=== PATIENT | male | born 1970 | race Caucasian/White ===

== ENCOUNTER 2019-07-08 02:21 | Inpatient (IN) | payer OTHER ==
[2019-07-08 02:51] LABS: Mean Corpuscular HGB CONC 34.6 g/dL (32.0-36.0); Mean Corpuscular Volume 95.3 fL (78.0-98.0); Mean Platelet Volume 7.9 fL (7.4-10.4); Platelet Count 171 thou/uL (130-400); Red Blood Cell (RBC) Count 4.24 mill/uL (4.70-6.10); White Blood Cell (WBC) Count 17.9 thou/uL (4.8-10.8)
[2019-07-08 02:55] LABS: INR-International Normal Ratio 3.1; PTT 67.7 SEC (22.9-36.1)
[2019-07-08 03:08] LABS: Band 17 % (5-11); Lymphocytes 4 % (21-51); MDiff Complete? YES; Monocytes 6 % (0-10); Neutrophil 73 % (42-75)
[2019-07-08 03:10] LABS: ALT (SGPT) 20 U/L (8-55); AST (SGOT) 32 U/L (5-34); Albumin 3.4 g/dL (3.5-5.0); Alkaline Phosphatase 71 U/L (40-150); Anion Gap 18 mmol/L (10-20); BUN (Urea Nitrogen) 34 mg/dL (8.9-20.6); Bilirubin, Total 1.1 mg/dL (0.2-1.2); Calc. Creatinine Clearance 0 mL/min (70-130); Carbon Dioxide 24 mmol/L (22-29); Chloride 98 mmol/L (98-107); Estimated GFR-MDRD 54; Globulin 3.9 g/dL (2.4-3.5); Glucose 171 mg/dL (70-105); Potassium 3.6 mmol/L (3.5-5.1); Protein, Total 7.3 g/dL (6.0-8.3); Sodium 136 mmol/L (136-145)
[2019-07-08] MEDS ORDERED: Clindamycin/D5W 600 mg/50 ml Premix Bag ONE (03:13)
[2019-07-08] MEDS ORDERED: Fentanyl 100 MCG/2 ML VIAL ONE (03:13)
[2019-07-08] MEDS ORDERED: Norepinephrine 8 MG in Dextrose 5% in Water 242 ML IVPB PRN (03:29)
[2019-07-08] MEDS ORDERED: Acetaminophen 325 MG TAB PO PRN (04:57)
[2019-07-08] MEDS ORDERED: Ondansetron ODT 4 MG TAB PO PRN (04:57)
[2019-07-08] MEDS ORDERED: Dextrose 50% Abboject 50 ML SYRINGE SLOW IVP PRN (05:06)
[2019-07-08] MEDS ORDERED: Dextrose 5% in Water 1,000 ML IV PRN (05:06)
[2019-07-08] MEDS ORDERED: HumaLOG 300 UNITS/3 ML VIAL SC PRN (05:06)
--- NOTE | 2019-07-08 06:12 | HP ---
CHIEF COMPLAINT: Worsening left leg pain. HISTORY OF PRESENT ILLNESS: Mr. Cruz is a 48-year-old male with multiple medical problems including morbid obesity, atrial fibrillation, anticoagulated on warfarin, congestive heart failure, peripheral vascular disease, chronic back pain, among others, presents to the emergency room with worsening left leg pain/cellulitis. The patient reports initially presenting to the ED with 3 days of worsening leg pain, denies shortness of breath. He has been having fever and chills for the last 2 days. Also, he developed diarrhea for the last 2 days. Workup in the emergency room, the patient was found to have a WBC count of 17.9. Blood pressure initially was low. A bedside ultrasound of the leg was done. CT of the lower extremity was not able to be done because of the patient's size and weight. Lactic acid is 3.5. Septic workup done in the emergency room. The patient was started on IV antibiotics. PAST MEDICAL HISTORY: 1. Diabetes. 2. Atrial fibrillation, anticoagulated on warfarin. 3. Congestive heart failure. 4. Peripheral vascular disease. 5. Chronic back pain. PAST SURGICAL HISTORY: Unknown cardiac procedure. SOCIAL HISTORY: He currently uses drugs, abuses marijuana. No cigarette smoking. He drinks alcohol socially. FAMILY HISTORY: Reviewed and noncontributory. ALLERGIES: NO KNOWN ALLERGIES. HOME MEDICATIONS: Please see home medication reconciliation form for updated medications. REVIEW OF SYSTEMS: Review of 14 systems negative except what is mentioned in history of present illness. PHYSICAL EXAMINATION: GENERAL: The patient is awake, alert, morbidly obese, not in acute distress. VITAL SIGNS: Blood pressure 112/86, pulse is 107, respiratory rate is 19, temperature 98.4. HEAD: Normocephalic, atraumatic. NECK: Supple. No JVD. CHEST: Fair bilateral air entry. ABDOMEN: Obese, soft. Bowel sounds present. NEUROLOGIC: Awake, alert, oriented x3. No focal deficits. PSYCHIATRIC: Normal mood. EXTREMITIES: Lower extremity shows swollen, erythematous, weeping skin, more in left lower extremity extending up to the left thigh. LABORATORY DATA: BUN is 34, creatinine 1.4, glucose 171. WBC count is 17.9, hemoglobin is 14, platelets 171. Lactic acid 3.5, INR is 3.1. ASSESSMENT AND PLAN: A 48-year-old male with multiple medical problems including morbid obesity, atrial fibrillation, congestive heart failure, peripheral vascular disease, diabetes mellitus, among others, presenting with worsening left leg pain, swelling and cellulitis. 1. Sepsis secondary to cellulitis of the left lower extremity. 2. Cellulitis of the left lower extremity. 3. Morbid obesity. 4. Diabetes mellitus. 5. Peripheral vascular disease. 6. Atrial fibrillation. PLAN: 1. Admit. 2. Septic workup including blood cultures. 3. Broad-spectrum antibiotics. 4. Wound care. 5. Cautious IV fluids given his cardiac history. 6. Reassess in a.m., may need a surgical consultation if worsening. 7. Monitor and control blood glucose. 8. Reconcile home medications. 9. DVT prophylaxis. Continue home anticoagulant. 10. Expected length of stay 3 midnights or more. Job ID: [id number]
[2019-07-08 06:43] LABS: Lactic Acid 1.9 mmol/L (0.5-2.2)
[2019-07-08] MEDS: Sodium Chloride 0.9% 1,000 ML IV SCH (06:51)
[2019-07-08] MEDS: metroNIDAZOLE 500 MG in Premix Bag 1 BAG IVPB SCH ×3 (06:52→17:51)
--- NOTE | 2019-07-08 07:42 | CT ---
CT OF THE LEFT LOWER EXTREMITY WITH IV CONTRAST: INDICATION: A 48-year-old male with a history of sepsis in atrial fibrillation and left lower extremity celluliti s. Worsening left leg pain; currently on anticoagulation with Coumadin but denies any shortness of b reath. The patient does have fever, chills, and diarrhea with progressive erythema. The patient is experiencing predominantly the pain in the left thigh. COMPARISON: None. FINDINGS: There is a marked grouping of lymphadenopathy within the left inguinal region with the largest lymph node seen on image 64 measuring 2.6 c in its greatest short axis. There is edema and inflammatory re ticulation involving the fat of the left inguinal region, skin and subcutaneous fat of the medial lef t thigh, posterior left knee and circumferentially of the foreleg, ankle, as well as the dorsal foot. No large drainable fluid collection is evident to suggest the presence of an abscess. There is no soft tissue gas present. No large interfascial fluid collections are demonstrated. No fluid collect ions are evident within the muscular compartments. There is a 3 cm lesion that contains stippled radha cifications suspicious for a low-grade chondroid lesion within the distal central femoral metaphyseal region. No acute osseous abnormality is demonstrated. IMPRESSION: 1. Marked cellulitis of the left lower extremity without evidence of a drainable fluid collection. 2. Suspected reactive lymphadenopathy of the left inguinal region. 3. Low-grade chondroid lesion of the distal femur. POS: ELENA
[2019-07-08] MEDS ORDERED: INSULIN REGULAR HUMAN 1 UNIT SQ SCH (08:15)
--- NOTE | 2019-07-08 08:41 | ULT ---
PRELIMINARY REPORT/[facility]/EMERGENCY AFTER HOURS PROCEDURE: EXAM: US Duplex Left Lower Extremity Veins, Limited EXAM DATE/TIME: 07/08/2019 3:39 AM CLINICAL HISTORY: 48 years old, male; Other: Lle pain, redness, swelling TECHNIQUE: Imaging protocol: Real-time Duplex ultrasound of the Left Lower Extremity with 2-D oden scale, color Doppler flow and spectral waveform analysis with image documentation. Limited exam focused on the lef t lower extremity veins. COMPARISON: No relevant prior studies available. FINDINGS: Left deep veins: The common femoral, femoral, proximal profunda femoral and popliteal veins are paten t without thrombus. Normal Doppler waveforms. Normal compressibility and/or augmentation response. Left superficial veins: Saphenofemoral junction is patent without thrombus. Soft tissues: Mild pulmonary edema. IMPRESSION: No evidence of deep vein thrombosis. Thank you for allowing us to participate in the care of your patient. Dictated and Authenticated by: Nikki Andrade MD 07/08/2019 4:19 AM Central Time ([place] & [place]) FINAL REPORT ULTRASOUND WITH DOPPLER DUPLEX VENOUS LOWER EXTREMITY LEFT: INDICATION: Edema, erythema. TECHNIQUE: Color flow Doppler, spectral waveform analysis of pulsed Doppler, and oden-scale imaging with rosalina randi and augmentation, were used to evaluate the left common femoral, femoral, popliteal, posterior t ibial, and superficial femoral, veins; and the proximal portions of the profunda femoral and greater saphenous, veins. FINDINGS: Within the imaged aspects of the deep vein system of the left lower extremity, there is no evidence o f deep venous thrombosis, with appropriate compressibility and flow. However, portions of the venous system are not visualized, below level of knee, notably at the posterior tibial vein. IMPRESSION: No deep venous thrombosis identified within the imaged left lower extremity, within limitations. I agree with the above provided preliminary interpretation from [facility]. POS: TPC
[2019-07-08] MEDS ORDERED: Buprenorphine HCl 2 MG SL TAB SL SCH (09:00)
[2019-07-08] MEDS ORDERED: INSULIN REGULAR HUMAN 100 UNIT SQ SCH (09:00)
[2019-07-08] MEDS ORDERED: Vancomycin HCl 1 GM in Sodium Chloride 0.9% 250 ML 250 ML IVPB SCH (09:00)
[2019-07-08] MEDS: Gemfibrozil 600 MG TAB PO SCH (09:55)
[2019-07-08] MEDS: Allopurinol 100 MG TAB PO SCH (09:55)
[2019-07-08] MEDS: Spironolactone 25 MG TAB PO SCH (09:56)
[2019-07-08] MEDS: Famotidine/PF 20 mg/2ml Vial SLOW IVP SCH ×2 (09:57→20:23)
[2019-07-08] MEDS: Cefepime 1 GM in Sodium Chloride 0.9% 100 ML IVPB SCH ×2 (09:57→20:17)
[2019-07-08] MEDS: Furosemide 40 MG TAB PO SCH ×2 (09:57→20:23)
[2019-07-08] MEDS: Morphine 2 MG/ML SYRINGE SLOW IVP PRN ×2 (10:07→20:27)
--- NOTE | 2019-07-08 10:18 | RAD ---
PORTABLE SEMIUPRIGHT FRONTAL CHEST RADIOGRAPH: 07/08/2019 HISTORY: Cellulitis. Sepsis. Atrial fibrillation with rapid ventricular rate. COMPARISON: 07/07/2019 FINDINGS: A right-sided vascular catheter is present. The distal tip is in the region of the cavoatrial juncti on, not optimally visualized secondary to body habitus and subtle motion. The cardiac silhouette pawan ears enlarged, which may be on the basis of cardiac enlargement and/or magnification. No focal conso lidation or alveolar edema. IMPRESSION: Portable chest radiograph as detailed above. POS: OFF
--- NOTE | 2019-07-08 12:04 | PDOC.EVN ---
Event Note - Event Note Event Note: Seen and examined. Changing to home insulin which he has with him. LE cellulitis improved per patient. LE swelling is chronic, patient states he will "drink a couple gallons of water a day". Patient also tells me he thinks "his Lasix is no longer working". Briefly educated on volume overload and cautioned him against drinking excess fluids. Responding to ABX. Follow culture data.
[2019-07-08] MEDS ORDERED: ISOVUE-370 76%-LOCM 1 ML ONE (13:10)
--- NOTE | 2019-07-08 16:54 | CON ---
DATE OF CONSULTATION: HISTORY OF PRESENT ILLNESS: Nesha Cruz is a 48-year-old morbidly obese gentleman, who normally seeks care in [facility] with multiple [facility]. He has multiple problems, morbidly obese at 198 kg. He presented to the hospital via [place], [place] with marked lower extremity swelling, drainage of fluid from the leg. Apparently, reported some fever and chills. He has noticed extensive erythema over the left thigh and leg with worsening blisters, which has been draining. He can barely walk 50 feet on the good day without getting short of breath. He says he was recently diagnosed with sleep apnea and has been placed on a CPAP machine. He is yet to use it. PAST MEDICAL HISTORY: Atrial fibrillation, congestive heart failure, morbid obesity, sleep apnea, chronic stasis, diabetes, and hypertension. PAST SURGICAL HISTORY: Chronic back pain. HOME MEDICATIONS: Include; 1. Insulin. 2. Ascorbic acid. 3. Metformin 1 tablet twice a day. 4. Allopurinol. 5. Gabapentin. 6. Lasix 40 b.i.d. 7. Lopid 650. 8. Spironolactone 25. 9. Coumadin 5. 10. Metoprolol XL 50. ALLERGIES: NONE. SOCIAL HISTORY: Uses marijuana apparently. Denies any tobacco abuse. Denies any alcohol abuse. Disabled. REVIEW OF SYSTEMS: Otherwise, 10-point negative. PHYSICAL EXAMINATION: GENERAL: Morbidly obese, in no distress. VITAL SIGNS: His saturations are 95% on supplemental oxygen, temperature 97, and blood pressure 110/67. CHEST: No wheezing or crackles. CARDIAC: Normal S1 and S2. No gallops. ABDOMEN: No masses. EXTREMITIES: Extensive 3+ edema right leg, 4+ on the left leg with large blisters draining. LABORATORY DATA: White count 17,000, H and H of 14 and 40, and platelet count is normal. INR is 3.1. Creatinine 1.4. IMAGING DATA: Chest x-ray is normal. No evidence of DVT was seen. IMPRESSION: 1. Extensive lower extremity edema, stasis, cellulitis. 2. Chronic exacerbation of congestive heart failure. PLAN: He was started on antibiotics, broad spectrum. Adjustment for his renal failure, Maxipime, Flagyl, and vancomycin. He is already on his Coumadin, already on his diuretics. I will continue all medication. I will consult Cardiology. Wound care. Consultation note, 70 minutes, 50% direct patient care. Job ID: [id number]
[2019-07-08] MEDS ORDERED: Warfarin Sodium 7.5 MG TAB PO SCH (17:00)
[2019-07-08] MEDS: Gabapentin 300 MG CAP PO SCH (20:23)
[2019-07-09] MEDS: metroNIDAZOLE 500 MG in Premix Bag 1 BAG IVPB SCH ×4 (01:21→17:07)
[2019-07-09] MEDS: Sodium Chloride 0.9% 1,000 ML IV SCH (01:30)
[2019-07-09 06:57] LABS: Hemoglobin 11.8 g/dL (14.0-18.0); Mean Corpuscular HGB CONC 33.5 g/dL (32.0-36.0); Mean Corpuscular Hemoglobin 32.6 pg (27.0-31.0); Mean Corpuscular Volume 97.4 fL (78.0-98.0); Mean Platelet Volume 8.2 fL (7.4-10.4); Platelet Count 161 thou/uL (130-400); RBC Distribution Width 13.1 % (11.5-14.5); Red Blood Cell (RBC) Count 3.61 mill/uL (4.70-6.10); White Blood Cell (WBC) Count 12.8 thou/uL (4.8-10.8)
[2019-07-09 07:01] LABS: Prothrombin Time 43.5 SEC (12.0-14.7)
[2019-07-09 07:02] LABS: INR-International Normal Ratio 4.7
[2019-07-09 07:08] LABS: ALT (SGPT) 17 U/L (8-55); AST (SGOT) 33 U/L (5-34); Alkaline Phosphatase 84 U/L (40-150); Anion Gap 11 mmol/L (10-20); BUN (Urea Nitrogen) 31 mg/dL (8.9-20.6); Bilirubin, Total 0.6 mg/dL (0.2-1.2); Calc. Creatinine Clearance 211 mL/min (70-130); Calcium 8.8 mg/dL (7.8-10.44); Carbon Dioxide 30 mmol/L (22-29); Chloride 100 mmol/L (98-107); Estimated GFR-MDRD 66; Globulin 3.7 g/dL (2.4-3.5); Glucose 159 mg/dL (70-105); Potassium 3.4 mmol/L (3.5-5.1); Protein, Total 6.7 g/dL (6.0-8.3); Sodium 138 mmol/L (136-145)
[2019-07-09 07:29] LABS: Band 29 % (5-11); Lymphocytes 7 % (21-51); MDiff Complete? YES; Metamyelocyte 1 % (0-0); Monocytes 4 % (0-10); Myelocyte 1 % (0-0); Neutrophil 58 % (42-75); RBC Morphology Normal
--- NOTE | 2019-07-09 09:01 | PRG ---
DATE OF SERVICE: 07/09/2019 SUBJECTIVE: He is a 48-year-old morbidly obese gentleman, who said he became hypoglycemic last night with his blood sugars unfortunately running low. This morning, his blood sugar is 66, creatinine is 1.8. White count 12,000, H and H 12 and 35. Leg still got weeping drainage from his cellulitis. So far all cultures are negative. He appears to be in no distress. OBJECTIVE: VITAL SIGNS: Temperature 98, blood pressure 110/73, saturations are 90% on room air. CHEST: No wheezing or crackles. CARDIAC: Normal S1 and S2. ASSESSMENT AND PLAN: Diabetes, cellulitis, morbid obesity, sleep apnea, congestive heart failure. Once cultures are back, I will start to deescalate antibiotics. He can probably be transferred out of the MICU. Aggressive PT supportive care. Job ID: [id number]
[2019-07-09] MEDS: Cefepime 1 GM in Sodium Chloride 0.9% 100 ML IVPB SCH ×2 (09:56→19:58)
[2019-07-09] MEDS: Gabapentin 300 MG CAP PO SCH ×2 (09:57→20:04)
[2019-07-09] MEDS: Furosemide 40 MG TAB PO SCH ×2 (09:57→20:04)
[2019-07-09] MEDS: Spironolactone 25 MG TAB PO SCH (09:57)
[2019-07-09] MEDS: Fenofibrate Nanocrystallized 145 MG TAB PO SCH (09:57)
[2019-07-09] MEDS: Famotidine/PF 20 mg/2ml Vial SLOW IVP SCH (09:57)
[2019-07-09] MEDS: Allopurinol 100 MG TAB PO SCH (09:57)
[2019-07-09] MEDS: Gemfibrozil 600 MG TAB PO SCH (09:57)
[2019-07-09] MEDS: Ascorbic Acid 500 mg Chewable Tablet PO SCH (09:57)
[2019-07-09] MEDS: HYDROcodone/Acetaminophen 7.5/325 mg Tablet PO PRN (11:03)
[2019-07-09] MEDS ORDERED: Warfarin Sodium 3.75 MG HALF.TAB PO SCH (17:00)
--- NOTE | 2019-07-09 18:39 | PDOC.HOSPP ---
- Subjective Encounter Date: 07/09/19 Encounter Time: 17:00 Subjective: Symptomatic hypoglycemia overnight. Discussed home insulin regimen: Humulin approx 200 units per 24 hours. Does not feel redness or induration have changed much overlying left leg. Increased blistering present. No further fever/chills as he experienced at home before presentation. - Objective Vital Signs & Weight: Vital Signs (12 hours) Temp Pulse Pulse BP BP Pulse Ox Pulse Ox 07/09/19 15:00 98.7 F 07/09/19 14:25 97 99 131/84 126/88 95 07/09/19 11:00 98.1 F 07/09/19 08:39 97.8 F 07/09/19 08:00 96 07/09/19 07:00 98.8 F Pulse Ox 07/09/19 15:00 07/09/19 14:25 97 07/09/19 11:00 07/09/19 08:39 07/09/19 08:00 07/09/19 07:00 Weight Admit Weight 434 lb 12.025 oz Weight 433 lb 14.4 oz Most Recent Monitor Data Heart Rate from ECG 92 NIBP 136/99 NIBP BP-Mean 111 Respiration from ECG 23 SpO2 97 I&O: 07/08/19 07/09/19 07/10/19 06:59 06:59 06:59 Intake Total 3000 Output Total 200 2950 800 Balance -200 50 -800 Result Diagrams: 07/09/19 06:00 07/09/19 06:00 Additional Labs: Accuchecks 07/09/19 07/09/19 07/09/19 16:48 11:56 05:26 POC Glucose 183 H 255 H 138 H 07/09/19 07/09/19 07/09/19 05:00 03:25 02:46 POC Glucose 119 H 92 75 07/09/19 07/08/19 02:21 20:19 POC Glucose 56 L* 128 H Hospitalist ROS - Medication Medications: Active Medications Generic Name Dose Route Start Last Admin Trade Name Freq PRN Reason Stop Dose Admin Hydrocodone Bitart/Acetaminophen 1 tab 07/08/19 04:57 07/09/19 11:03 Caney 7.5/325 PO 1 tab Q4H PRN Administration Moderate Pain (4-6) Allopurinol 100 mg 07/08/19 09:00 07/09/19 09:57 Zyloprim PO 100 mg DAILY JOURDAN Administration Ascorbic Acid 500 mg 07/09/19 09:00 07/09/19 09:57 Vitamin C PO 500 mg DAILY JOURDAN Administration Famotidine 20 mg 07/08/19 09:00 07/09/19 09:57 Pepcid SLOW IVP 20 mg Q12HR JOURDAN Administration Fenofibrate 145 mg 07/09/19 09:00 07/09/19 09:57 Tricor PO 145 mg DAILY JOURDAN Administration Furosemide 40 mg 07/08/19 09:00 07/09/19 09:57 Lasix PO 40 mg BID JOURDAN Administration Gabapentin 1,800 mg 07/08/19 21:00 07/09/19 09:57 Neurontin PO 1,800 mg BID JOURDAN Administration Gemfibrozil 600 mg 07/08/19 09:00 07/09/19 09:57 Lopid PO 600 mg DAILY JOURDAN Administration Sodium Chloride 1,000 mls @ 50 mls/hr 07/08/19 05:00 07/09/19 01:30 Normal Saline 0.9% IV 1,000 mls .Q20H JOURDAN Administration Cefepime HCl 1 gm/ Sodium 100 mls @ 200 mls/hr 07/08/19 08:00 07/09/19 09:56 Chloride IVPB 100 mls 0800,2000 JOURDAN Administration Metronidazole 500 mg/ Device 100 mls @ 100 mls/hr 07/08/19 06:00 07/09/19 17: 07 IVPB 100 mls Q6HR JOURDAN Administration Vancomycin HCl 2 gm/ Sodium 500 mls @ 250 mls/hr 07/08/19 09:00 07/09/19 11: 00 Chloride IVPB 500 mls 0900,2100 JOURDAN Administration Metoprolol Succinate 50 mg 07/08/19 09:00 07/09/19 09:57 Toprol Xl PO 50 mg BID JOURDAN Administration Morphine Sulfate 2 mg 07/08/19 09:34 07/08/19 20:27 Morphine SLOW IVP 2 mg Q4H PRN Administration Moderate to Severe Pain (6-10) Spironolactone 25 mg 07/08/19 09:00 07/09/19 09:57 Aldactone PO 25 mg DAILY JOURDAN Administration - Exam General - other findings: Sitting up in bed, talkative; obese Eye: PERRL ENT: no oropharyngeal lesions, moist mucosa Neck: no JVD Heart: irregular Respiratory: CTAB Gastrointestinal: soft Gastrointestinal - other findings: obese Extremities - other findings: Profound lymphedema with overlying cellulitis/ blisters Left upper leg Skin - other findings: as above; warm/indurated Neurological: no weakness Musculoskeletal: normal strength Psychiatric: A&O x 3 Hosp A/P (1) Sepsis Code(s): A41.9 - SEPSIS, UNSPECIFIED ORGANISM Status: Acute (2) Cellulitis Code(s): L03.90 - CELLULITIS, UNSPECIFIED Status: Acute (3) Lymphedema Code(s): I89.0 - LYMPHEDEMA, NOT ELSEWHERE CLASSIFIED Status: Acute (4) Atrial fibrillation, chronic Code(s): I48.2 - CHRONIC ATRIAL FIBRILLATION Status: Acute (5) Morbid obesity Code(s): E66.01 - MORBID (SEVERE) OBESITY DUE TO EXCESS CALORIES Status: Acute (6) Type 2 diabetes mellitus Status: Acute (7) Peripheral vascular disease Code(s): I73.9 - PERIPHERAL VASCULAR DISEASE, UNSPECIFIED Status: Acute - Plan ID - Unfortunately I do not see blood culture results, hopefully these were drawn in [place] before transfer. Currently on empiric IV abx (Vanc/Cefepime/ Flagyl.) Transition to orals once clear improvement established. Follow WBC, appears to be responding to therapy. Continue wound care, appreciate consult Cards - continue home metoprolol (chronic afib, rate controlled.) Hold coumadin tonight, INR noted, 4.7. Coumadin 2mg nightly ordered for 07/10. No echo noted to review documented history of CHF, will order. Continue home aldactone, lasix. Stop IV fluids. Walking program Endo - Decrease insulin at night due to hypoglycemia Transfer to [facility], ordered entered
[2019-07-09] MEDS ORDERED: Insulin Regular 300 UNITS/3 ML VIAL SC SCH (21:00)
[2019-07-10] MEDS: metroNIDAZOLE 500 MG in Premix Bag 1 BAG IVPB SCH ×4 (01:42→17:00)
[2019-07-10 06:47] LABS: Hemoglobin 12.5 g/dL (14.0-18.0); Mean Corpuscular HGB CONC 32.9 g/dL (32.0-36.0); Mean Corpuscular Hemoglobin 32.1 pg (27.0-31.0); Mean Corpuscular Volume 97.4 fL (78.0-98.0); Mean Platelet Volume 7.9 fL (7.4-10.4); Platelet Count 205 thou/uL (130-400); White Blood Cell (WBC) Count 12.4 thou/uL (4.8-10.8)
[2019-07-10 06:50] LABS: INR-International Normal Ratio 3.9; Prothrombin Time 38.1 SEC (12.0-14.7)
[2019-07-10 07:06] LABS: Anion Gap 14 mmol/L (10-20); BUN (Urea Nitrogen) 23 mg/dL (8.9-20.6); Calc. Creatinine Clearance 232 mL/min (70-130); Calcium 8.8 mg/dL (7.8-10.44); Carbon Dioxide 28 mmol/L (22-29); Chloride 102 mmol/L (98-107); Estimated GFR-MDRD 73; Glucose 138 mg/dL (70-105); Potassium 3.5 mmol/L (3.5-5.1); Sodium 140 mmol/L (136-145)
[2019-07-10 08:23] LABS: Band 27 % (5-11); Eosinophils 4 % (0-10); Lymphocytes 13 % (21-51); MDiff Complete? YES; Monocytes 4 % (0-10); Neutrophil 52 % (42-75); RBC Morphology Normal
[2019-07-10] MEDS ORDERED: Insulin Regular 300 UNITS/3 ML VIAL SC SCH (09:00)
--- NOTE | 2019-07-10 09:14 | PRG ---
DATE OF SERVICE: 07/10/2019 SUBJECTIVE: The patient is seen and examined at the bedside. He was hypoglycemic this morning. He had some shakes and got sweaty, but this is corrected and he feels better. He still has pain in his left thigh, where the cellulitis is. He rates it at around 7. OBJECTIVE: VITAL SIGNS: Blood pressure is 150/95, pulse is 86, respiratory rate is 7, O2 saturation is 96% on room air. GENERAL: His BMI 64. He is morbidly obese. He is 433 pounds. HEENT: His eyes are PERRLA. Sclerae are nonicteric. Oral mucosa is moist. NECK: Supple, obese. LUNGS: Clear. HEART: S1, S2. Irregularly irregular. No S3. No S4. ABDOMEN: Very obese. Bowel sounds present. EXTREMITIES: Left thigh showed significant cellulitis with some blister formation. No pus visible. NEUROLOGICAL EXAMINATION: He moves his all 4 extremities. There is no any motor or sensory deficits. LABORATORY DATA: Labs showed white count of 12.4, hemoglobin 12.5, hematocrit 38.0, platelet count 205,000. Normal electrolytes. BUN of 23, creatinine 1.07. Glucose from 86 to 183. INR is 3.9, PT 38.1. Microbiology, none. IMPRESSION: 1. Sepsis. 2. Left thigh cellulitis. 3. Lymphedema. 4. Chronic atrial fibrillation, rate controlled on anticoagulation. 5. Morbid obesity. 6. Type 2 diabetes mellitus. 7. Hypoglycemia. 8. Peripheral vascular disease. 9. History of congestive heart failure per the patient's information. DISCUSSION: The patient is going to use his own insulin, which is Humulin R 50 units before each meal, which is going to give him about 150 units daily since he was hypoglycemic again this morning. We will continue his current regimen with vancomycin, cefepime, and Flagyl. We will check on his blood cultures, which were drawn in [place] before the transfer. We will get ID consult with Dr. García. This is most likely a strep B cellulitis with blisters formation. His INR is 3.9. We will hold his Coumadin and check his INR tomorrow morning. We will continue his diuretics and Accu-Cheks. Job ID: [id number]
[2019-07-10] MEDS: Cefepime 1 GM in Sodium Chloride 0.9% 100 ML IVPB SCH ×2 (09:26→20:16)
[2019-07-10] MEDS: Allopurinol 100 MG TAB PO SCH (09:27)
[2019-07-10] MEDS: Ascorbic Acid 500 mg Chewable Tablet PO SCH (09:27)
[2019-07-10] MEDS: Gabapentin 300 MG CAP PO SCH ×2 (09:27→20:15)
[2019-07-10] MEDS: Spironolactone 25 MG TAB PO SCH (09:28)
[2019-07-10] MEDS: Fenofibrate Nanocrystallized 145 MG TAB PO SCH (09:28)
[2019-07-10] MEDS: Gemfibrozil 600 MG TAB PO SCH (09:28)
[2019-07-10] MEDS: Furosemide 40 MG TAB PO SCH ×2 (09:28→20:16)
--- NOTE | 2019-07-10 09:36 | PRG ---
DATE OF SERVICE: 07/10/2019 SUBJECTIVE: This morning, awake, alert, and responsive. No pain. No shortness of breath. OBJECTIVE: VITAL SIGNS: Temperature 97, blood pressure 150/95, respiratory rate 18, and pulse 80. CHEST: No wheezing or crackles. CARDIAC: Normal S1 and S2. No gallops. ABDOMEN: No masses. LABORATORY DATA: His INR is 3.9. His blood sugar continues to decrease from time to time. His insulin dose has been adjusted. IMPRESSION: 1. Cellulitis. 2. Morbid obesity. 3. Diabetes. 4. Sleep apnea. 5. Severe deconditioning. PLAN: Once again, his cultures are negative. I see no reason to continue multiple antibiotics. We will follow. Job ID: [id number]
[2019-07-10] MEDS ORDERED: Warfarin Sodium 2 MG TAB PO SCH (17:00)
[2019-07-10] MEDS: HYDROcodone/Acetaminophen 7.5/325 mg Tablet PO PRN (20:12)
[2019-07-10 20:54] LABS: Vancomycin, Trough 19.4 ug/mL
--- NOTE | 2019-07-10 23:25 | CON ---
DATE OF CONSULTATION: 07/10/2019 REASON FOR CONSULTATION: Cellulitis, left lower extremity. HISTORY OF PRESENT ILLNESS: A 48-year-old patient, history of type 2 diabetes; cardiomyopathy; obesity; chronic venous insufficiency, lower extremities; and new onset of inflammatory process in the left leg ascending through the medial left thigh few days before admission, a fairly sudden onset. This has been associated with fever, chills, some diarrhea, and some sore throat. Initial white cell count 17.9. He has been started on broad-spectrum antimicrobial coverage. The exam was remarkable for inflammatory changes, left lower extremity. Currently, Mr. Cruz is awake, quite pleasant. He does not appear in acute distress. Denies any headaches. No visual symptoms, sore throat, odynophagia, or dysphagia. Mild dyspnea. No chest pain. No abdominal pain. He is voiding without difficulty. Patient has chronic pain syndrome in the back area and he takes chronic opioids. Has been on buprenorphine, but quit because of adverse reactions and has had no bleeding, no diarrhea. PAST MEDICAL HISTORY: Type 2 diabetes; obesity; atrial fibrillation, on warfarin; cardiomyopathy; PVD; venous insufficiency; and chronic back pain, never operated. SOCIAL HISTORY: Former smoker, opioid dependency in the past, drinks occasionally. 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 FAMILY HISTORY: Noncontributory. ALLERGIES: NONE. CURRENT MEDICATIONS: 1. Tylenol. 2. Freer. 3. Zyloprim. 4. Vitamin C. 5. Cefepime. 6. Flexeril. 7. TriCor. 8. Lasix. 9. Neurontin. 10. Lopid. 11. Insulin. 12. Toprol. 13. Flagyl. 14. Vancomycin. PHYSICAL EXAMINATION: VITAL SIGNS: T-max 98.9, blood pressure 160/84, pulse 88, and O2 saturation 97. SKIN: Shows the circumferential areas of blistering erythema in the left leg ascending to the medial aspect of the left thigh with associated blisters. Blisters have a clear yellow drainage. The right leg has areas of hyperpigmentation typical of stasis dermatitis. There is some dermatosclerosis in the lower extremities. Patient has a peripheral IV access and is voiding in the urinal. No lymphadenopathy. HEENT: Ocular movements conjugate. Nasal passages patent. Ear exam normal. Oral cavity with quite a few remaining teeth with quite a bit of decay. NECK: Supple. No jugular venous distention or carotid bruits. LUNGS: Symmetric air entry. HEART: S1, S2. No S3. Irregular rate. Diminished heart sounds. ABDOMEN: Quite difficult exam because of the prominence of his panniculus. No tenderness. No ascites. No organomegaly. No bladder distention. EXTREMITIES: Lymphedema in the lower extremity extremities. Pulses are diminished in dorsalis pedis, but most of it is probably from the edema. He is able to move extremities. There is no pain on the range of motion of ankles or knees. NEUROLOGIC: He is awake, oriented, and follows commands. Recollection is good. Speech is normal. LABORATORY FINDINGS: White cell count 17.9, is at 12.4; and hemoglobin 14, now 12.5; platelets 171 and 205; bands at 27%. INR was 3.1 and now 3.9. Sodium 140, creatinine 1.07. Bilirubin was normal. AST and ALT were within normal limits. Alkaline phosphatase was within normal limits as well. Albumin 3.0. Blood glucose from 53 to 250. Microbiology, no samples are resulted. There is a lower extremity CT scan done the day before yesterday with cellulitis, reactive lymphadenopathy in left inguinal region. There is a vascular ultrasound with the venous component showing no evidence of deep vein thrombosis. ASSESSMENT: 1. Obesity. 2. Type 2 diabetes. 3. Cardiomyopathy. 4. Venous insufficiency. 5. Cellulitis, left lower extremity. DISCUSSION: The most likely scenario is beta-hemolytic strep cellulitis either A, B, C, or G. Switch him to Rocephin. Discontinue remainder antimicrobials. Keep leg elevated. Patient has in the past failed attempt at wearing compression devices for the extremities and there would be critical for the prevention of recurrence of these episodes. In addition to that, I would recommend long-term Pen-Vee K suppression at least one year with 250 mg twice daily. Once he gets better, then he can be transitioned to Keflex for discharge planning, but I am afraid he is going to remain in the hospital for quite a few days in view of the severity of his cellulitis. Job ID: [id number]
[2019-07-11] MEDS: metroNIDAZOLE 500 MG in Premix Bag 1 BAG IVPB SCH ×4 (01:08→17:40)
[2019-07-11 06:07] LABS: INR-International Normal Ratio 2.6; Prothrombin Time 27.9 SEC (12.0-14.7)
[2019-07-11] MEDS: HYDROcodone/Acetaminophen 7.5/325 mg Tablet PO PRN (06:10)
[2019-07-11] MEDS: Gabapentin 300 MG CAP PO SCH ×2 (08:21→20:45)
[2019-07-11] MEDS: Cefepime 1 GM in Sodium Chloride 0.9% 100 ML IVPB SCH ×2 (08:21→20:48)
[2019-07-11] MEDS: Spironolactone 25 MG TAB PO SCH (08:22)
[2019-07-11] MEDS: Gemfibrozil 600 MG TAB PO SCH (08:22)
[2019-07-11] MEDS: Allopurinol 100 MG TAB PO SCH (08:22)
[2019-07-11] MEDS: Fenofibrate Nanocrystallized 145 MG TAB PO SCH (08:22)
[2019-07-11] MEDS: Ascorbic Acid 500 mg Chewable Tablet PO SCH (08:22)
[2019-07-11] MEDS: Furosemide 40 MG TAB PO SCH ×2 (08:22→20:45)
--- NOTE | 2019-07-11 16:26 | PRG ---
DATE OF SERVICE: 07/11/2019 SUBJECTIVE: The patient is seen and examined at bedside. He does not have much complaints to offer except for those some pain in his left thigh where the cellulitis is. His appetite is good. OBJECTIVE: VITAL SIGNS: Blood pressure is 121/81, pulse is 94, temperature is 97.8, respiratory rate is 16, O2 saturation is 97% on room air. He is very obese, morbidly with weight of 444 pounds. HEENT: His eyes are PERRLA. Sclerae are nonicteric. Oral mucosa is moist. NECK: Supple, obese. LUNGS: Clear. HEART: S1 and S2 normal. ABDOMEN: Obese, soft, nontender. EXTREMITIES: Cellulitis of the left thigh is present and there are more blisters now below the knee formed. NEUROLOGIC: He moves his all 4 extremities, although this is somewhat challenging for such a big person, but he follows my commands. LABORATORY DATA: Glycemia ranging from 86 to 250. IMPRESSION: 1. Left lower extremity cellulitis, which is most likely streptococcal. The patient was seen by Dr. García, who recommends to switch him to Rocephin. 2. Sepsis. 3. Lymphedema. 4. Chronic atrial fibrillation with rate controlled on anticoagulation. Started on 7.5 mg of Coumadin alternating with 5 mg since his INR is down to 2.6. 5. Morbid obesity. 6. Type 2 diabetes mellitus. We are going to change his dosing on short-acting insulin to 45 units before each meal because he felt that when the glycemia was down to 86 this morning, he felt it and he would like to avoid this feeling. 7. Peripheral vascular disease. 8. History of congestive heart failure per the patient's information. DISCUSSION: Humulin R will be changed to 45 units before each meal. He does not want to use any long-acting insulin. I will send him back to his primary care physician to manage this diabetes and insulin treatment. As Dr. García stated in his note, he will require transition to oral antistreptococcal agents and he will need prophylactic dose of penicillin VK. As mentioned above, I am going to start his Coumadin back 7.5 mg. Job ID: [id number]
[2019-07-11] MEDS: Warfarin Sodium 5 MG TAB PO SCH (17:39)
[2019-07-12] MEDS: metroNIDAZOLE 500 MG in Premix Bag 1 BAG IVPB SCH ×2 (01:17→06:22)
[2019-07-12 06:45] LABS: Prothrombin Time 22.9 SEC (12.0-14.7)
[2019-07-12] MEDS: Spironolactone 25 MG TAB PO SCH (08:25)
[2019-07-12] MEDS: Allopurinol 100 MG TAB PO SCH (08:25)
[2019-07-12] MEDS: Furosemide 40 MG TAB PO SCH ×2 (08:25→20:24)
[2019-07-12] MEDS: Fenofibrate Nanocrystallized 145 MG TAB PO SCH (08:25)
[2019-07-12] MEDS: Gemfibrozil 600 MG TAB PO SCH (08:25)
[2019-07-12] MEDS: Ascorbic Acid 500 mg Chewable Tablet PO SCH (08:25)
[2019-07-12] MEDS: Gabapentin 300 MG CAP PO SCH ×2 (08:26→20:25)
[2019-07-12] MEDS ORDERED: cefTRIAXone\\ROCEPHIN 1 GM in Sodium Chloride 0.9% 100 ML IVPB SCH (09:00)
[2019-07-12] MEDS ORDERED: cefTRIAXone\\ROCEPHIN 2 GM in Sodium Chloride 0.9% 100 ML IVPB SCH (12:00)
--- NOTE | 2019-07-12 12:14 | PRG ---
DATE OF SERVICE: 07/12/2019 SUBJECTIVE: The patient is seen and examined at the bedside. He is doing quite well. He noticed some new blisters on his lower extremity below the knee. His appetite is fair. Bowel movements daily. OBJECTIVE: VITAL SIGNS: Blood pressure is 116/81, pulse is 94, respirations 16, O2 saturation is 95% on room air. His temperature is 98.3. HEENT: His head is atraumatic and normocephalic. Sclerae are nonicteric. Oral mucosa is moist. NECK: Supple, obese. LUNGS: Clear. HEART: S1 and S2, irregularly irregular. No S3. No S4. ABDOMEN: Obese, soft, nontender. EXTREMITIES: Left thigh with erythema, which is looking somewhat better and few new blisters on the left lower extremity below the knee. NEUROLOGIC: He is alert and oriented x4. There is no any motor or sensory deficits. LABORATORY DATA: Glycemia is ranging from 124 to 199. His INR is 2.0, PT is 22.9. CBC and chemistry panel are still pending. Microbiology, bacterial culture from the left thigh drainage came back negative for wbc's and organisms. IMPRESSION: 1. Left thigh and left [id number] area cellulitis with new developing blisters of the left rosa. The patient will be switched to 2 g of Rocephin today, other antimicrobials will be stopped. 2. Sepsis, improved. 3. Lymphedema. 4. Chronic atrial fibrillation with rate controlled, on anticoagulation. His Coumadin was restarted yesterday with 7.5 alternating with 5 mg tablets every other day. His INR is 2.0 today. 5. Morbid obesity. 6. Type 2 diabetes mellitus. We will continue his current regimen at 45 units of short-acting insulin before each meal. 7. Peripheral vascular disease. 8. History of congestive heart failure per the patient's information. DISCUSSION: No changes in our management. Continue antibiotics, but at this point, will be just 2 g of Rocephin every 24 hours. Continue elevation of the left lower extremity. Continue Coumadin alternating dose 7.5 with 5 mg every other day. Job ID: [id number]
[2019-07-12 13:25] LABS: Hemoglobin 11.8 g/dL (14.0-18.0); Mean Corpuscular HGB CONC 33.4 g/dL (32.0-36.0); Mean Corpuscular Hemoglobin 32.7 pg (27.0-31.0); Mean Corpuscular Volume 98.1 fL (78.0-98.0); Mean Platelet Volume 7.5 fL (7.4-10.4); Platelet Count 235 thou/uL (130-400); RBC Distribution Width 13.2 % (11.5-14.5); Red Blood Cell (RBC) Count 3.62 mill/uL (4.70-6.10); White Blood Cell (WBC) Count 11.1 thou/uL (4.8-10.8)
[2019-07-12] MEDS: cefTRIAXone\\ROCEPHIN 2 GM in Sodium Chloride 0.9% 100 ML IVPB SCH (13:29)
[2019-07-12 13:41] LABS: Anion Gap 11 mmol/L (10-20); BUN (Urea Nitrogen) 8 mg/dL (8.9-20.6); Calc. Creatinine Clearance 307 mL/min (70-130); Calcium 8.3 mg/dL (7.8-10.44); Carbon Dioxide 31 mmol/L (22-29); Chloride 101 mmol/L (98-107); Estimated GFR-MDRD Greater than 90; Glucose 174 mg/dL (70-105); Potassium 3.5 mmol/L (3.5-5.1); Sodium 139 mmol/L (136-145)
[2019-07-12 14:41] LABS: Band 15 % (5-11); Eosinophils 2 % (0-10); Lymphocytes 11 % (21-51); MDiff Complete? YES; Metamyelocyte 5 % (0-0); Monocytes 5 % (0-10); Myelocyte 1 % (0-0); Neutrophil 59 % (42-75); Nucleated RBC 1 % (0); Platelet Morphology Comment Appears Adequate; Polychromasia SLIGHT = 2-3 cells (100X) (0-2/hpf)
[2019-07-12] MEDS: Cefepime 1 GM in Sodium Chloride 0.9% 100 ML IVPB SCH (16:41)
[2019-07-12] MEDS: Warfarin Sodium 7.5 MG TAB PO SCH (18:28)
[2019-07-12] MEDS: HYDROcodone/Acetaminophen 7.5/325 mg Tablet PO PRN (20:24)
[2019-07-13 03:47] LABS: INR-International Normal Ratio 1.9
[2019-07-13] MEDS: Ascorbic Acid 500 mg Chewable Tablet PO SCH (08:34)
[2019-07-13] MEDS: Fenofibrate Nanocrystallized 145 MG TAB PO SCH (08:34)
[2019-07-13] MEDS: Gemfibrozil 600 MG TAB PO SCH (08:34)
[2019-07-13] MEDS: Gabapentin 300 MG CAP PO SCH ×2 (08:34→21:17)
[2019-07-13] MEDS: Allopurinol 100 MG TAB PO SCH (08:34)
[2019-07-13] MEDS: Cyclobenzaprine 10 MG TAB PO PRN (08:35)
[2019-07-13] MEDS: Spironolactone 25 MG TAB PO SCH (08:35)
[2019-07-13] MEDS: Furosemide 40 MG TAB PO SCH ×2 (08:35→21:17)
[2019-07-13] MEDS: HYDROcodone/Acetaminophen 7.5/325 mg Tablet PO PRN ×2 (08:35→21:18)
--- NOTE | 2019-07-13 11:49 | CON ---
DATE OF CONSULTATION: 07/13/2019 CHIEF COMPLAINT: This is a 48-year-old male who is hospitalized for left lower extremity venous stasis infection associated with swelling and fever at home. He has been afebrile here. He has no significant pain in the leg. He notes weeping. He has a history of chronic venous stasis. He has tried compression wraps in the past, although he is not consistent in this. I have been consulted for whether that there is any need for surgical debridement. PAST MEDICAL HISTORY: Type 2 diabetes, morbid obesity, atrial fibrillation, cardiomyopathy, peripheral vascular disease, and chronic back pain. PAST SURGICAL HISTORY: None. ALLERGIES: NONE. SOCIAL HISTORY: Former smoker. Occasional alcohol. No other drugs. He is disabled. MEDICATIONS: See list. ALLERGIES: NO KNOWN DRUG ALLERGIES. REVIEW OF SYSTEMS: A 10-system review of systems otherwise negative unless described above. PHYSICAL EXAMINATION: VITAL SIGNS: Blood pressure is 136/74 and pulse 107. He is afebrile. HEENT: Sclerae are anicteric. Oropharynx clear. NECK: No lymphadenopathy. CHEST: Clear. HEART: Regular rate and rhythm. ABDOMEN: Soft, protuberant, and nontender. EXTREMITIES: Examination of his lower extremity revealed there to be no obvious ischemic change. There are chronic venous stasis changes to bilateral lower extremities, left worse than right. He has weepy excoriated skin more pronounced in the right upper inner thigh. He has swelling to the left foot as well. There is no obvious drainable abscess. CT scan on admission showed no obvious drainable abscess. Vascular ultrasound of the left lower extremity showed no evidence of deep vein thrombosis. LABORATORY DATA: White blood cell count today is 11, 15 bands. Creatinine is 0.83. ASSESSMENT: Chronic venous stasis changes with cellulitis to the left lower extremity with marked swelling. PLAN: No need for surgical intervention or debridement at this time. Recommend continue compression wraps. We will follow. Continue IV antibiotics. Job ID: [id number]
--- NOTE | 2019-07-13 13:23 | EKG ---
Test Reason : Blood Pressure : / mmHG Vent. Rate : 114 BPM Atrial Rate : 153 BPM P-R Int : 000 ms QRS Dur : 106 ms QT Int : 326 ms P-R-T Axes : 000 025 004 degrees QTc Int : 449 ms Atrial fibrillation with rapid ventricular response with premature ventricular or aberrantly conducte d complexes Low voltage QRS Incomplete right bundle branch block Abnormal ECG Confirmed by CLAY FITZPATRICK ([id number]), news assignment editor ELENA GODFREY ([id number]) on 07/13/2019 1:23:19 PM Referred By: Confirmed By:CLAY FITZPATRICK
--- NOTE | 2019-07-13 13:24 | PRG ---
DATE OF SERVICE: 07/13/2019 SUBJECTIVE: The patient was seen and examined at bedside. He does not have much complaints to offer except for the leg. He rates his pain at around 7 or 8. OBJECTIVE: VITAL SIGNS: Blood pressure is 136/74, pulse is 107, temperature is 97.8, respirations 20, and O2 saturation is 98% on room air. HEENT: His sclerae are nonicteric. Conjunctivae are pinkish. Oral mucosa is moist. NECK: Supple, obese. LUNGS: Clear. HEART: S1 and S2 normal. ABDOMEN: Soft, obese, and nontender. EXTREMITIES: Left thigh looks somewhat better, but area below the knee and above the ankle formed several new blisters and it is more indurated. NEUROLOGICAL: He is alert and oriented x4. There is no any motor deficits. LABORATORY DATA: Labs showed white count of 11.1, hemoglobin of 11.8, hematocrit 35.5, and platelet count is 235,000. Glycemia is ranging from 122 to 142. His INR is 1.9. PT is 22.0. Microbiology, no new findings. IMPRESSION: 1. Left thigh and left calf cellulitis with quite massive lymphedema, currently on 2 g of Rocephin q.24 hours. 2. Sepsis, improved. 3. Lymphedema. 4. Chronic atrial fibrillation, rate controlled on anticoagulation with INR of 1.9. 5. Morbid obesity. 6. Type 2 diabetes mellitus with slightly low morning Accu-Chek and some symptoms. 7. Peripheral vascular disease. 8. History of congestive heart failure per the patient's information. DISCUSSION: We will continue his Rocephin 2 g every 24 hours IV piggyback. We will continue his Coumadin regimen, but if his INR is less than 2 yesterday, I will intensify the treatment. We will use less short-acting insulin at night with the dinner because of his morning hypoglycemia at least symptomatic and he will do 45 units of short-acting insulin before breakfast, before lunch and 40 units before dinner time. General Surgery was consulted for evaluation whether he needs to have any debridement, but apparently not and they recommend to continue the treatment. Job ID: [id number]
[2019-07-13] MEDS: cefTRIAXone\\ROCEPHIN 2 GM in Sodium Chloride 0.9% 100 ML IVPB SCH (14:21)
[2019-07-13] MEDS: Warfarin Sodium 5 MG TAB PO SCH (17:25)
[2019-07-14 03:19] LABS: Prothrombin Time 22.3 SEC (12.0-14.7)
[2019-07-14] MEDS: Allopurinol 100 MG TAB PO SCH (08:24)
[2019-07-14] MEDS: Ascorbic Acid 500 mg Chewable Tablet PO SCH (08:25)
[2019-07-14] MEDS: Fenofibrate Nanocrystallized 145 MG TAB PO SCH (08:25)
[2019-07-14] MEDS: Gemfibrozil 600 MG TAB PO SCH (08:25)
[2019-07-14] MEDS: Furosemide 40 MG TAB PO SCH ×2 (08:25→20:46)
[2019-07-14] MEDS: Gabapentin 300 MG CAP PO SCH ×2 (08:25→20:46)
[2019-07-14] MEDS: Spironolactone 25 MG TAB PO SCH (08:25)
[2019-07-14] MEDS: Cyclobenzaprine 10 MG TAB PO PRN (08:28)
[2019-07-14] MEDS: HYDROcodone/Acetaminophen 7.5/325 mg Tablet PO PRN ×3 (08:28→20:47)
--- NOTE | 2019-07-14 08:55 | PRG ---
DATE OF SERVICE: 07/14/2019 SUBJECTIVE: The patient is seen and examined at bedside. He does not have much complaints to offer. His pain in the lower extremities is somewhat diminished. His appetite is good. Bowel movements somewhat runny. OBJECTIVE: VITAL SIGNS: Blood pressure is 139/87, pulse is 99, respiratory rate is 18, and O2 saturation 93% on room air. HEENT: Head is atraumatic and normocephalic. Eyes are PERRLA. Sclerae are nonicteric. Oral mucosa is moist. NECK: Supple, obese. LUNGS: Clear. HEART: S1 and S2 normal. ABDOMEN: Very obese. Bowel sounds are present. No organomegaly. EXTREMITIES: Left leg bukbj-avy-isay is wrapped. The upper part, the thigh area looks less erythematous. The blisters are popped. NEUROLOGICAL: He is alert and oriented x4. There are no any motor deficits. LABORATORY DATA: Glycemia is ranging from 72 to 130. Chemistry and CBC pending. IMPRESSION AND PLAN: 1. Left lower extremity cellulitis. The patient was seen by General Surgeon, Dr. Mcdonald, who does not recommend any surgical intervention at this point. We will continue his current antibiotic regimen with ceftriaxone 2 g every 24 hours and continue wound care. 2. Chronic atrial fibrillation, rate controlled. INR is 2.0. We will continue his regular schedule of Coumadin 7.5 mg alternating with 5 mg every other day. 3. Morbid obesity. 4. Diabetes mellitus, controlled with short-acting insulin before each meal. He is doing 45 units of insulin before breakfast and before lunch and 40 units before dinner. This seems to be controlling his glycemia quite well. 5. Peripheral vascular disease. 6. History of congestive heart failure per the patient's information. 7. Sepsis, improved. 8. Lymphedema. Job ID: [id number]
[2019-07-14 09:15] LABS: Hemoglobin 12.4 g/dL (14.0-18.0); Mean Corpuscular HGB CONC 32.6 g/dL (32.0-36.0); Mean Corpuscular Hemoglobin 32.5 pg (27.0-31.0); Mean Corpuscular Volume 99.7 fL (78.0-98.0); Mean Platelet Volume 7.4 fL (7.4-10.4); Platelet Count 275 thou/uL (130-400); RBC Distribution Width 13.4 % (11.5-14.5); Red Blood Cell (RBC) Count 3.81 mill/uL (4.70-6.10); White Blood Cell (WBC) Count 13.2 thou/uL (4.8-10.8)
[2019-07-14 09:24] LABS: Anion Gap 9 mmol/L (10-20); BUN (Urea Nitrogen) 7 mg/dL (8.9-20.6); Calc. Creatinine Clearance 314 mL/min (70-130); Carbon Dioxide 31 mmol/L (22-29); Chloride 101 mmol/L (98-107); Estimated GFR-MDRD Greater than 90; Glucose 184 mg/dL (70-105); Potassium 4.1 mmol/L (3.5-5.1); Sodium 137 mmol/L (136-145)
[2019-07-14 11:04] LABS: Band 9 % (5-11); Eosinophils 2 % (0-10); Lymphocytes 16 % (21-51); MDiff Complete? YES; Metamyelocyte 4 % (0-0); Monocytes 15 % (0-10); Myelocyte 1 % (0-0); Neutrophil 53 % (42-75); Platelet Morphology Comment Appears Adequate; Polychromasia SLIGHT = 2-3 cells (100X) (0-2/hpf)
[2019-07-14] MEDS: cefTRIAXone\\ROCEPHIN 2 GM in Sodium Chloride 0.9% 100 ML IVPB SCH (13:38)
--- NOTE | 2019-07-14 16:00 | PRG ---
DATE OF SERVICE: 07/14/2019 SUBJECTIVE: Still quite a bit of pain in the left lower extremity, but is able to stand up while used to go to the bathroom and shower. There has been significant improvement since admission. No headaches. No shortness of breath or chest pain. No abdominal pain or diarrhea. He is able to void in the toilet. OBJECTIVE: VITAL SIGNS: Temperature max 98.7. Other vital signs are normal. O2 saturation 93. GENERAL: Appears in no distress, oriented, alert. HEENT: Ocular movements conjugate. SKIN: Shows the left lower extremity slow, but steady improvement in the amount of inflammatory activity. There are quite a few blisters in the posterior aspect of the left leg. The medial thigh lesion is not swollen. No evidence of an abscess at this point in time. LUNGS: Clear. HEART: S1 and S2. Regular rate. ABDOMEN: Soft, not distended or tender. LABORATORY AND DIAGNOSTIC DATA: White cell count was 17.9 and now 13.2, hemoglobin 12.4, platelets 275 with 52% neutrophils and 9% bands. Sodium 137, creatinine 0.81. Thigh drainage with normal skin brenda. Culture results. ASSESSMENT AND DISCUSSION: Obesity, type 2 diabetes, cardiomyopathy, venous insufficiency, cellulitis left lower extremity likely secondary to beta-hemolytic Streptococcus. Continue Rocephin. This is steadily improving, but should take another 4 to 5 days prior conversion to oral antimicrobial therapy. I do not see any areas of abscess formation, sometimes may form some large areas of blistering and need to be debrided. Job ID: [id number]
[2019-07-14] MEDS: Warfarin Sodium 7.5 MG TAB PO SCH (16:39)
[2019-07-15 06:09] LABS: INR-International Normal Ratio 2.1; Prothrombin Time 23.1 SEC (12.0-14.7)
[2019-07-15 06:24] LABS: Anion Gap 9 mmol/L (10-20); BUN (Urea Nitrogen) 8 mg/dL (8.9-20.6); Calc. Creatinine Clearance 311 mL/min (70-130); Calcium 9.5 mg/dL (7.8-10.44); Carbon Dioxide 34 mmol/L (22-29); Chloride 98 mmol/L (98-107); Estimated GFR-MDRD Greater than 90; Glucose 151 mg/dL (70-105); Potassium 4.3 mmol/L (3.5-5.1); Sodium 137 mmol/L (136-145)
[2019-07-15] MEDS: Furosemide 40 MG TAB PO SCH ×2 (08:28→17:24)
[2019-07-15] MEDS: Ascorbic Acid 500 mg Chewable Tablet PO SCH (08:29)
[2019-07-15] MEDS: Gabapentin 300 MG CAP PO SCH ×2 (08:30→21:28)
[2019-07-15] MEDS: Allopurinol 100 MG TAB PO SCH (08:30)
[2019-07-15] MEDS: Spironolactone 25 MG TAB PO SCH (08:31)
[2019-07-15] MEDS: Fenofibrate Nanocrystallized 145 MG TAB PO SCH (08:31)
[2019-07-15] MEDS: HYDROcodone/Acetaminophen 7.5/325 mg Tablet PO PRN (08:31)
[2019-07-15] MEDS: Gemfibrozil 600 MG TAB PO SCH (08:34)
[2019-07-15 12:41] VITALS: BMI 65.6
--- NOTE | 2019-07-15 13:18 | PDOC.HOSPP ---
- Subjective Encounter Date: 07/15/19 Encounter Time: 13:17 Subjective: no current complaints - Objective Vital Signs & Weight: Vital Signs (12 hours) Temp Pulse Resp BP Pulse Ox 07/15/19 07:53 98.2 F 93 16 111/73 16 L Weight Admit Weight 434 lb 12.025 oz Weight 444 lb 5 oz Most Recent Monitor Data Heart Rate from ECG 98 NIBP 119/60 NIBP BP-Mean 79 Respiration from ECG 15 SpO2 83 I&O: 07/14/19 07/15/19 07/16/19 06:59 06:59 06:59 Intake Total 1740 2100 Balance 1740 2100 Result Diagrams: 07/14/19 08:52 07/15/19 05:45 Additional Labs: Accuchecks 07/15/19 07/15/19 07/14/19 11:14 04:57 19:14 POC Glucose 266 H 173 H 222 H 07/14/19 16:25 POC Glucose 175 H Hospitalist ROS - Medication Medications: Active Medications Generic Name Dose Route Start Last Admin Trade Name Freq PRN Reason Stop Dose Admin Acetaminophen 650 mg 07/08/19 04:57 07/11/19 16:22 Tylenol PO 650 mg Q4H PRN Administration Headache/Fever/Mild Pain (1-3) Hydrocodone Bitart/Acetaminophen 1 tab 07/08/19 04:57 07/15/19 08:31 [place] 7.5/325 PO 1 tab Q4H PRN Administration Moderate Pain (4-6) Allopurinol 100 mg 07/08/19 09:00 07/15/19 08:30 Zyloprim PO 100 mg DAILY JOURDAN Administration Ascorbic Acid 500 mg 07/09/19 09:00 07/15/19 08:29 Vitamin C PO 500 mg DAILY JOURDAN Administration Cyclobenzaprine HCl 10 mg 07/08/19 08:27 07/14/19 08:28 Flexeril PO 10 mg DAILY PRN Administration Muscle Spasm Fenofibrate 145 mg 07/09/19 09:00 07/15/19 08:31 Tricor PO 145 mg DAILY JOURDAN Administration Furosemide 40 mg 07/08/19 09:00 07/15/19 08:28 Lasix PO 40 mg BID JOURDAN Administration Gabapentin 1,800 mg 07/08/19 21:00 07/15/19 08:30 Neurontin PO 1,800 mg BID JOURDAN Administration Gemfibrozil 600 mg 07/08/19 09:00 07/15/19 08:34 Lopid PO 600 mg DAILY JOURDAN Administration Ceftriaxone Sodium 2 gm/ 100 mls @ 200 mls/hr 07/12/19 14:00 07/14/19 13:38 Sodium Chloride IVPB 100 mls 1400 JOURDAN Administration Metoprolol Succinate 50 mg 07/08/19 09:00 07/15/19 08:30 Toprol Xl PO 50 mg BID JOURDAN Administration Morphine Sulfate 2 mg 07/08/19 09:34 07/08/19 20:27 Morphine SLOW IVP 2 mg Q4H PRN Administration Moderate to Severe Pain (6-10) Spironolactone 25 mg 07/08/19 09:00 07/15/19 08:31 Aldactone PO 25 mg DAILY JOURDAN Administration Warfarin Sodium 7.5 mg 07/12/19 17:00 07/14/19 16:39 Coumadin PO 7.5 mg [email or web address]@[id number] JOURDAN Administration Warfarin Sodium 5 mg 07/11/19 17:00 07/13/19 17:25 Coumadin PO 5 mg TuThSa@1700 JOURDAN Administration - Exam General - other findings: morbid obesity Neck: no JVD Heart: RRR, no murmur Respiratory: CTAB Gastrointestinal: soft, non-tender, normal bowel sounds Extremities - other findings: cellulitis medial L lower extremity Hosp A/P (1) Cellulitis Code(s): L03.90 - CELLULITIS, UNSPECIFIED Status: Acute Qualifiers: Site of cellulitis: extremity Site of cellulitis of extremity: lower extremity Laterality: left Qualified Code(s): L03.116 - Cellulitis of left lower limb (2) Lymphedema Code(s): I89.0 - LYMPHEDEMA, NOT ELSEWHERE CLASSIFIED Status: Chronic (3) Atrial fibrillation, chronic Code(s): I48.2 - CHRONIC ATRIAL FIBRILLATION Status: Chronic (4) Morbid obesity Code(s): E66.01 - MORBID (SEVERE) OBESITY DUE TO EXCESS CALORIES Status: Chronic (5) Type 2 diabetes mellitus Status: Chronic Qualifiers: Diabetes mellitus long-term insulin use: with termite control servicer use Diabetes mellitus complication status: without complication Qualified Code(s): E11.9 - Type 2 diabetes mellitus without complications; Z79.4 - nursing home (current) use of insulin (6) Anticoagulant long-term use Code(s): Z79.01 - FLYER MAKER (CURRENT) USE OF ANTICOAGULANTS Status: Chronic (7) Cardiomyopathy Code(s): I42.9 - CARDIOMYOPATHY, UNSPECIFIED Status: Chronic Qualifiers: Cardiomyopathy type: unspecified Qualified Code(s): I42.9 - Cardiomyopathy , unspecified - Plan cont iv antibx, discuss with ID cont coumadin, serial PT/INR cont insulin, etc
[2019-07-15] MEDS: cefTRIAXone\\ROCEPHIN 2 GM in Sodium Chloride 0.9% 100 ML IVPB SCH (13:57)
[2019-07-15] MEDS: Warfarin Sodium 7.5 MG TAB PO SCH (17:24)
[2019-07-16] MEDS: Allopurinol 100 MG TAB PO SCH (08:17)
[2019-07-16] MEDS: HYDROcodone/Acetaminophen 7.5/325 mg Tablet PO PRN ×2 (08:18→17:12)
[2019-07-16] MEDS: Cyclobenzaprine 10 MG TAB PO PRN (08:18)
[2019-07-16] MEDS: Ascorbic Acid 500 mg Chewable Tablet PO SCH (08:18)
[2019-07-16] MEDS: Fenofibrate Nanocrystallized 145 MG TAB PO SCH (08:18)
[2019-07-16] MEDS: Gabapentin 300 MG CAP PO SCH ×2 (08:24→21:25)
[2019-07-16] MEDS: Gemfibrozil 600 MG TAB PO SCH (08:24)
[2019-07-16] MEDS: Furosemide 40 MG TAB PO SCH ×2 (08:25→17:10)
[2019-07-16] MEDS: Spironolactone 25 MG TAB PO SCH (08:25)
--- NOTE | 2019-07-16 10:23 | PDOC.HOSPP ---
- Subjective Encounter Date: 07/16/19 Encounter Time: 10:22 Subjective: fever, chills, etc - Objective Vital Signs & Weight: Vital Signs (12 hours) Temp Pulse Resp BP Pulse Ox 07/16/19 07:38 98.3 F 88 22 H 143/83 H 97 07/16/19 00:24 98.3 F 86 16 110/67 94 L Weight Admit Weight 434 lb 12.025 oz Weight 444 lb 5 oz Most Recent Monitor Data Heart Rate from ECG 98 NIBP 119/60 NIBP BP-Mean 79 Respiration from ECG 15 SpO2 83 I&O: 07/15/19 07/16/19 07/17/19 06:59 06:59 06:59 Intake Total 2100 Balance 2100 Result Diagrams: 07/14/19 08:52 07/15/19 05:45 Additional Labs: Accuchecks 07/16/19 07/16/19 07/15/19 04:24 02:50 19:39 POC Glucose 183 H 68 L 175 H 07/15/19 07/15/19 16:15 11:14 POC Glucose 175 H 266 H Hospitalist ROS - Medication Medications: Active Medications Generic Name Dose Route Start Last Admin Trade Name Freq PRN Reason Stop Dose Admin Acetaminophen 650 mg 07/08/19 04:57 07/11/19 16:22 Tylenol PO 650 mg Q4H PRN Administration Headache/Fever/Mild Pain (1-3) Hydrocodone Bitart/Acetaminophen 1 tab 07/08/19 04:57 07/16/19 08:18 [place] 7.5/325 PO 1 tab Q4H PRN Administration Moderate Pain (4-6) Allopurinol 100 mg 07/08/19 09:00 07/16/19 08:17 Zyloprim PO 100 mg DAILY JOURDAN Administration Ascorbic Acid 500 mg 07/09/19 09:00 07/16/19 08:18 Vitamin C PO 500 mg DAILY JOURDAN Administration Cyclobenzaprine HCl 10 mg 07/08/19 08:27 07/16/19 08:18 Flexeril PO 10 mg DAILY PRN Administration Muscle Spasm Fenofibrate 145 mg 07/09/19 09:00 07/16/19 08:18 Tricor PO 145 mg DAILY JOURDAN Administration Furosemide 40 mg 07/08/19 09:00 07/16/19 08:25 Lasix PO 40 mg BID JOURDAN Administration Gabapentin 1,800 mg 07/08/19 21:00 07/16/19 08:24 Neurontin PO 1,800 mg BID JOURDAN Administration Gemfibrozil 600 mg 07/08/19 09:00 07/16/19 08:24 Lopid PO 600 mg DAILY JOURDAN Administration Ceftriaxone Sodium 2 gm/ 100 mls @ 200 mls/hr 07/12/19 14:00 07/15/19 13:57 Sodium Chloride IVPB 100 mls 1400 JOURDAN Administration Metoprolol Succinate 50 mg 07/08/19 09:00 07/16/19 08:25 Toprol Xl PO 50 mg BID JOURDAN Administration Morphine Sulfate 2 mg 07/08/19 09:34 07/08/19 20:27 Morphine SLOW IVP 2 mg Q4H PRN Administration Moderate to Severe Pain (6-10) Spironolactone 25 mg 07/08/19 09:00 07/16/19 08:25 Aldactone PO 25 mg DAILY JOURDAN Administration Warfarin Sodium 7.5 mg 07/12/19 17:00 07/15/19 17:24 Coumadin PO 7.5 mg [id number]@1700 JOURDAN Administration Warfarin Sodium 5 mg 07/11/19 17:00 07/13/19 17:25 Coumadin PO 5 mg TuThSa@1700 JOURDAN Administration - Exam General Appearance: awake alert Neck: no JVD Heart: RRR, no murmur Respiratory: CTAB Gastrointestinal: soft, normal bowel sounds Extremities - other findings: lymphedema, erythema L medial upper leg Hosp A/P (1) Cellulitis Code(s): L03.90 - CELLULITIS, UNSPECIFIED Status: Acute Qualifiers: Site of cellulitis: extremity Site of cellulitis of extremity: lower extremity Laterality: left Qualified Code(s): L03.116 - Cellulitis of left lower limb (2) Lymphedema Code(s): I89.0 - LYMPHEDEMA, NOT ELSEWHERE CLASSIFIED Status: Chronic (3) Atrial fibrillation, chronic Code(s): I48.2 - CHRONIC ATRIAL FIBRILLATION Status: Chronic (4) Morbid obesity Code(s): E66.01 - MORBID (SEVERE) OBESITY DUE TO EXCESS CALORIES Status: Chronic (5) Type 2 diabetes mellitus Status: Chronic Qualifiers: Diabetes mellitus mcfp insulin use: with buttermaker use Diabetes mellitus complication status: without complication Qualified Code(s): E11.9 - Type 2 diabetes mellitus without complications; Z79.4 - intermission coordinator (current) use of insulin (6) Anticoagulant long-term use Code(s): Z79.01 - [place] (CURRENT) USE OF ANTICOAGULANTS Status: Chronic (7) Cardiomyopathy Code(s): I42.9 - CARDIOMYOPATHY, UNSPECIFIED Status: Chronic Qualifiers: Cardiomyopathy type: unspecified Qualified Code(s): I42.9 - Cardiomyopathy , unspecified - Plan cont iv antibx, discuss with ID cont coumadin, serial PT/INR cont insulin, etc
[2019-07-16 10:39] LABS: INR-International Normal Ratio 2.1; Prothrombin Time 23.7 SEC (12.0-14.7)
[2019-07-16] MEDS: cefTRIAXone\\ROCEPHIN 2 GM in Sodium Chloride 0.9% 100 ML IVPB SCH (13:59)
[2019-07-16] MEDS: Warfarin Sodium 5 MG TAB PO SCH (17:09)
[2019-07-17] MEDS: HYDROcodone/Acetaminophen 7.5/325 mg Tablet PO PRN (06:21)
[2019-07-17 06:48] LABS: INR-International Normal Ratio 2.2; Prothrombin Time 24.4 SEC (12.0-14.7)
[2019-07-17] MEDS: Gemfibrozil 600 MG TAB PO SCH (08:37)
[2019-07-17] MEDS: Ascorbic Acid 500 mg Chewable Tablet PO SCH (08:37)
[2019-07-17] MEDS: Spironolactone 25 MG TAB PO SCH (08:37)
[2019-07-17] MEDS: Furosemide 40 MG TAB PO SCH ×2 (08:37→19:58)
[2019-07-17] MEDS: Fenofibrate Nanocrystallized 145 MG TAB PO SCH (08:37)
[2019-07-17] MEDS: Gabapentin 300 MG CAP PO SCH ×2 (08:37→19:59)
[2019-07-17] MEDS: Allopurinol 100 MG TAB PO SCH (08:37)
[2019-07-17] MEDS: cefTRIAXone\\ROCEPHIN 2 GM in Sodium Chloride 0.9% 100 ML IVPB SCH (13:58)
--- NOTE | 2019-07-17 14:35 | PDOC.HOSPP ---
- Subjective Encounter Date: 07/17/19 Encounter Time: 14:33 Subjective: no fever, chills, mild left leg discomfort - Objective Vital Signs & Weight: Vital Signs (12 hours) Temp Pulse Resp BP Pulse Ox 07/17/19 07:24 97 F L 107 H 20 101/72 92 L Weight Admit Weight 434 lb 12.025 oz Weight 444 lb 5 oz Most Recent Monitor Data Heart Rate from ECG 98 NIBP 119/60 NIBP BP-Mean 79 Respiration from ECG 15 SpO2 83 I&O: 07/16/19 07/17/19 07/18/19 06:59 06:59 06:59 Intake Total 480 Balance 480 Result Diagrams: 07/14/19 08:52 07/15/19 05:45 Additional Labs: Accuchecks 07/17/19 07/17/19 07/16/19 12:05 04:42 19:28 POC Glucose 194 H 97 323 H 07/16/19 16:34 POC Glucose 257 H Hospitalist ROS - Medication Medications: Active Medications Generic Name Dose Route Start Last Admin Trade Name Freq PRN Reason Stop Dose Admin Acetaminophen 650 mg 07/08/19 04:57 07/11/19 16:22 Tylenol PO 650 mg Q4H PRN Administration Headache/Fever/Mild Pain (1-3) Hydrocodone Bitart/Acetaminophen 1 tab 07/08/19 04:57 07/17/19 06:21 [place] 7.5/325 PO 1 tab Q4H PRN Administration Moderate Pain (4-6) Allopurinol 100 mg 07/08/19 09:00 07/17/19 08:37 Zyloprim PO 100 mg DAILY JOURDAN Administration Ascorbic Acid 500 mg 07/09/19 09:00 07/17/19 08:37 Vitamin C PO 500 mg DAILY JOURDAN Administration Cyclobenzaprine HCl 10 mg 07/08/19 08:27 07/16/19 08:18 Flexeril PO 10 mg DAILY PRN Administration Muscle Spasm Fenofibrate 145 mg 07/09/19 09:00 07/17/19 08:37 Tricor PO 145 mg DAILY JOURDAN Administration Furosemide 40 mg 07/08/19 09:00 07/17/19 08:37 Lasix PO 40 mg BID JOURDAN Administration Gabapentin 1,800 mg 07/08/19 21:00 07/17/19 08:37 Neurontin PO 1,800 mg BID JOURDAN Administration Gemfibrozil 600 mg 07/08/19 09:00 07/17/19 08:37 Lopid PO 600 mg DAILY JOUDRAN Administration Ceftriaxone Sodium 2 gm/ 100 mls @ 200 mls/hr 07/12/19 14:00 07/17/19 13:58 Sodium Chloride IVPB 100 mls 1400 JOURDAN Administration Metoprolol Succinate 50 mg 07/08/19 09:00 07/17/19 08:38 Toprol Xl PO 50 mg BID JOURDAN Administration Morphine Sulfate 2 mg 07/08/19 09:34 07/08/19 20:27 Morphine SLOW IVP 2 mg Q4H PRN Administration Moderate to Severe Pain (6-10) Spironolactone 25 mg 07/08/19 09:00 07/17/19 08:37 Aldactone PO 25 mg DAILY JOURDAN Administration Warfarin Sodium 7.5 mg 07/12/19 17:00 07/15/19 17:24 Coumadin PO 7.5 mg [id number]@1700 JOURDAN Administration Warfarin Sodium 5 mg 07/11/19 17:00 07/16/19 17:09 Coumadin PO 5 mg TuThSa@1700 JOURDAN Administration - Exam Neck: no JVD Heart: RRR, no murmur Respiratory: CTAB Gastrointestinal: soft, normal bowel sounds Extremities - other findings: lymphedema, cellulitis upper left lower ext Hosp A/P (1) Cellulitis Code(s): L03.90 - CELLULITIS, UNSPECIFIED Status: Acute Qualifiers: Site of cellulitis: extremity Site of cellulitis of extremity: lower extremity Laterality: left Qualified Code(s): L03.116 - Cellulitis of left lower limb (2) Lymphedema Code(s): I89.0 - LYMPHEDEMA, NOT ELSEWHERE CLASSIFIED Status: Chronic (3) Atrial fibrillation, chronic Code(s): I48.2 - CHRONIC ATRIAL FIBRILLATION Status: Chronic (4) Morbid obesity Code(s): E66.01 - MORBID (SEVERE) OBESITY DUE TO EXCESS CALORIES Status: Chronic (5) Type 2 diabetes mellitus Status: Chronic Qualifiers: Diabetes mellitus adjunct faculty for medical terminology insulin use: with adjunct faculty for medical terminology use Diabetes mellitus complication status: without complication Qualified Code(s): E11.9 - Type 2 diabetes mellitus without complications; Z79.4 - longterm (current) use of insulin (6) Anticoagulant long-term use Code(s): Z79.01 - RESIDENTIAL (CURRENT) USE OF ANTICOAGULANTS Status: Chronic (7) Cardiomyopathy Code(s): I42.9 - CARDIOMYOPATHY, UNSPECIFIED Status: Chronic Qualifiers: Cardiomyopathy type: unspecified Qualified Code(s): I42.9 - Cardiomyopathy , unspecified - Plan cont iv antibx, discuss with ID cont coumadin, serial PT/INR cont insulin, etc
[2019-07-17] MEDS: Warfarin Sodium 7.5 MG TAB PO SCH (16:23)
[2019-07-18] MEDS: HYDROcodone/Acetaminophen 7.5/325 mg Tablet PO PRN (01:53)
[2019-07-18 06:25] LABS: INR-International Normal Ratio 2.1; Prothrombin Time 23.5 SEC (12.0-14.7)
[2019-07-18] MEDS: Gemfibrozil 600 MG TAB PO SCH (07:52)
[2019-07-18] MEDS: Gabapentin 300 MG CAP PO SCH ×2 (08:30→20:38)
[2019-07-18] MEDS: Ascorbic Acid 500 mg Chewable Tablet PO SCH (08:30)
[2019-07-18] MEDS: Spironolactone 25 MG TAB PO SCH (08:30)
[2019-07-18] MEDS: Allopurinol 100 MG TAB PO SCH (08:30)
[2019-07-18] MEDS: Furosemide 40 MG TAB PO SCH ×2 (08:31→14:32)
[2019-07-18] MEDS: Fenofibrate Nanocrystallized 145 MG TAB PO SCH (08:31)
[2019-07-18] MEDS: Morphine 2 MG/ML SYRINGE SLOW IVP PRN (08:33)
--- NOTE | 2019-07-18 11:40 | PDOC.HOSPP ---
- Subjective Encounter Date: 07/18/19 Encounter Time: 11:44 Subjective: no complaints - Objective Vital Signs & Weight: Vital Signs (12 hours) Temp Pulse Resp BP Pulse Ox 07/18/19 11:00 98.3 F 105 H 14 122/68 93 L 07/18/19 07:52 97.5 F L 116 H 132/75 94 L Weight Admit Weight 434 lb 12.025 oz Weight 444 lb 5 oz Most Recent Monitor Data Heart Rate from ECG 98 NIBP 119/60 NIBP BP-Mean 79 Respiration from ECG 15 SpO2 83 I&O: 07/17/19 07/18/19 07/19/19 06:59 06:59 06:59 Intake Total 2320 Balance 2320 Result Diagrams: 07/14/19 08:52 07/15/19 05:45 Additional Labs: Accuchecks 07/18/19 07/18/19 07/18/19 11:12 04:17 01:59 POC Glucose 321 H 127 H 113 H 07/17/19 07/17/19 07/17/19 19:17 15:41 12:05 POC Glucose 202 H 133 H 194 H Hospitalist ROS - Medication Medications: Active Medications Generic Name Dose Route Start Last Admin Trade Name Freq PRN Reason Stop Dose Admin Acetaminophen 650 mg 07/08/19 04:57 07/11/19 16:22 Tylenol PO 650 mg Q4H PRN Administration Headache/Fever/Mild Pain (1-3) Allopurinol 100 mg 07/08/19 09:00 07/18/19 08:30 Zyloprim PO 100 mg DAILY JOURDAN Administration Ascorbic Acid 500 mg 07/09/19 09:00 07/18/19 08:30 Vitamin C PO 500 mg DAILY JOURDAN Administration Cyclobenzaprine HCl 10 mg 07/08/19 08:27 07/16/19 08:18 Flexeril PO 10 mg DAILY PRN Administration Muscle Spasm Fenofibrate 145 mg 07/09/19 09:00 07/18/19 08:31 Tricor PO 145 mg DAILY JOURDAN Administration Furosemide 40 mg 07/18/19 15:00 07/18/19 08:31 Lasix PO 40 mg 0600,1500 JOURDAN Administration Gabapentin 1,800 mg 07/08/19 21:00 07/18/19 08:30 Neurontin PO 1,800 mg BID JOURDAN Administration Ceftriaxone Sodium 2 gm/ 100 mls @ 200 mls/hr 07/12/19 14:00 07/17/19 13:58 Sodium Chloride IVPB 100 mls 1400 [facility] Administration Metoprolol Succinate 50 mg 07/08/19 09:00 07/18/19 08:30 Toprol Xl PO 50 mg BID JOURDAN Administration Spironolactone 25 mg 07/08/19 09:00 07/18/19 08:30 Aldactone PO 25 mg DAILY JOURDAN Administration Warfarin Sodium 7.5 mg 07/12/19 17:00 07/17/19 16:23 Coumadin PO 7.5 mg SuMoWeFr@1700 JOURDAN Administration Warfarin Sodium 5 mg 07/11/19 17:00 07/16/19 17:09 Coumadin PO 5 mg TuThSa@1700 [facility] Administration - Exam General Appearance: awake alert Neck: no JVD Heart: RRR Respiratory: CTAB Gastrointestinal: soft, non-distended, normal bowel sounds Extremities - other findings: cellulitis Left leg improved Hosp A/P (1) Cellulitis Code(s): L03.90 - CELLULITIS, UNSPECIFIED Status: Acute Qualifiers: Site of cellulitis: extremity Site of cellulitis of extremity: lower extremity Laterality: left Qualified Code(s): L03.116 - Cellulitis of left lower limb (2) Lymphedema Code(s): I89.0 - LYMPHEDEMA, NOT ELSEWHERE CLASSIFIED Status: Chronic (3) Atrial fibrillation, chronic Code(s): I48.2 - CHRONIC ATRIAL FIBRILLATION Status: Chronic (4) Morbid obesity Code(s): E66.01 - MORBID (SEVERE) OBESITY DUE TO EXCESS CALORIES Status: Chronic (5) Type 2 diabetes mellitus Status: Chronic Qualifiers: Diabetes mellitus prison insulin use: with prison use Diabetes mellitus complication status: without complication Qualified Code(s): E11.9 - Type 2 diabetes mellitus without complications; 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
[2019-07-18] MEDS ORDERED: Clopidogrel Bisulfate 75 MG TAB ONE (12:50)
[2019-07-18] MEDS: cefTRIAXone\\ROCEPHIN 2 GM in Sodium Chloride 0.9% 100 ML IVPB SCH (14:27)
--- NOTE | 2019-07-18 14:27 | PRG ---
DATE OF SERVICE: 07/18/2019 SUBJECTIVE: The patient is feeling better, still has quite a bit of pain particularly in the medial thigh region. No respiratory symptoms or abdominal pain. No diarrhea. Voiding without difficulty. OBJECTIVE: VITAL SIGNS: Temperature max 99.1, blood pressure 120/60, pulse 105 , respirations 14, and O2 saturation 93%. GENERAL: Awake, alert, and oriented, in no distress. LUNGS: Clear. HEART: S1 and S2. Regular rate. ABDOMEN: Soft with quite prominent panniculus. EXTREMITIES: Left leg with the areas of blistering and erythema in the medial thigh, now the blistering becoming more dried up and some of the blisters have already ruptured, and there is a scab formation at the bottom of the area. The leg itself, left side has quite a bit of stasis dermatitis and dermatofibrosis, but the acute inflammatory aspect is definitely improving. LABORATORY DATA: White cell count is at 13.2, hemoglobin 12.4, platelets 275 with bands down now to 9% and the creatinine 0.82. Microbiology, final thigh drainage culture with rare normal skin brenda. ASSESSMENT AND DISCUSSION: Type 2 diabetes, cardiomyopathy, venous insufficiency, cellulitis left lower extremity extending towards the thigh with blistering, likely due to beta-hemolytic Streptococcus. Continue Rocephin. I will treat him for another few days to have those areas of inflammatory change to see to the point where he can be discharged on oral antimicrobial therapy. I would consider transition him to a swing bed for completion and the final phase of treatment. I would continue Rocephin as currently maybe another 3 to 5/7 days and then transition to Keflex for another 2 weeks, and then penicillin VK 250 mg twice daily with compression device to the left leg. Job ID: [id number] [facility]
[2019-07-18] MEDS: metFORMIN 500 MG TAB PO SCH (16:45)
[2019-07-18] MEDS: glipiZIDE 5 MG TAB PO SCH (16:45)
[2019-07-18] MEDS: Warfarin Sodium 5 MG TAB PO SCH (16:46)
[2019-07-18] MEDS ORDERED: Non-Formulary Item 1 EACH (Glyburide/Metformin Hcl [Glyburide/Metformin] 1 TABLET) PO SCH (17:00)
[2019-07-19] MEDS: Gemfibrozil 600 MG TAB PO SCH (05:43)
[2019-07-19] MEDS: Furosemide 40 MG TAB PO SCH ×2 (05:43→14:03)
[2019-07-19] MEDS: Ascorbic Acid 500 mg Chewable Tablet PO SCH (08:26)
[2019-07-19] MEDS: Spironolactone 25 MG TAB PO SCH (08:26)
[2019-07-19] MEDS: Allopurinol 100 MG TAB PO SCH (08:26)
[2019-07-19] MEDS: metFORMIN 500 MG TAB PO SCH ×2 (08:26→17:22)
[2019-07-19] MEDS: glipiZIDE 5 MG TAB PO SCH ×2 (08:26→17:22)
[2019-07-19] MEDS: Cyclobenzaprine 10 MG TAB PO PRN (08:26)
[2019-07-19] MEDS: Gabapentin 300 MG CAP PO SCH ×2 (08:26→20:16)
[2019-07-19] MEDS: Fenofibrate Nanocrystallized 145 MG TAB PO SCH (08:26)
[2019-07-19] MEDS: HYDROcodone/Acetaminophen 10/325 mg Tablet PO PRN (10:37)
[2019-07-19] MEDS: cefTRIAXone\\ROCEPHIN 2 GM in Sodium Chloride 0.9% 100 ML IVPB SCH (14:02)
[2019-07-19] MEDS: Warfarin Sodium 7.5 MG TAB PO SCH (17:22)
--- NOTE | 2019-07-19 18:37 | PDOC.HOSPP ---
- Subjective Encounter Date: 07/19/19 Subjective: reports he is better better, he does not think to be fully ready for discharge and he feel he would more IV antibiotics - Objective Vital Signs & Weight: Vital Signs (12 hours) Temp Pulse Resp BP Pulse Ox 07/19/19 08:00 107 H 07/19/19 07:37 98.2 F 107 H 20 104/69 95 Weight Admit Weight 434 lb 12.025 oz Weight 444 lb 5 oz Most Recent Monitor Data Heart Rate from ECG 98 NIBP 119/60 NIBP BP-Mean 79 Respiration from ECG 15 SpO2 83 I&O: 07/18/19 07/19/19 07/20/19 06:59 06:59 06:59 Intake Total 2320 3630 1800 Balance 2320 3630 1800 Result Diagrams: 07/14/19 08:52 07/15/19 05:45 Additional Labs: Accuchecks 07/19/19 07/19/19 07/19/19 16:47 12:04 05:27 POC Glucose 212 H 324 H 125 H 07/18/19 20:05 POC Glucose 238 H Hospitalist ROS - Review of Systems Respiratory: denies: shortness of breath Cardiovascular: denies: chest pain Gastrointestinal: denies: abdominal pain Skin: denies: lesions, bruising - Medication Medications: Active Medications Generic Name Dose Route Start Last Admin Trade Name Freq PRN Reason Stop Dose Admin Acetaminophen 650 mg 07/08/19 04:57 07/11/19 16:22 Tylenol PO 650 mg Q4H PRN Administration Headache/Fever/Mild Pain (1-3) Hydrocodone Bitart/Acetaminophen 1 tab 07/19/19 09:04 07/19/19 10:37 [place] 10/325 PO 1 tab Q4H PRN Administration Pain Allopurinol 100 mg 07/08/19 09:00 07/19/19 08:26 Zyloprim PO 100 mg DAILY JOURDAN Administration Ascorbic Acid 500 mg 07/09/19 09:00 07/19/19 08:26 Vitamin C PO 500 mg DAILY JOURDAN Administration Cyclobenzaprine HCl 10 mg 07/08/19 08:27 07/19/19 08:26 Flexeril PO 10 mg DAILY PRN Administration Muscle Spasm Fenofibrate 145 mg 07/09/19 09:00 07/19/19 08:26 Tricor PO 145 mg DAILY JOURDAN Administration Furosemide 40 mg 07/18/19 15:00 07/19/19 14:03 Lasix PO 40 mg 0600,1500 JOUR[facility]AN Administration Gabapentin 1,800 mg 07/08/19 21:00 07/19/19 08:26 Neurontin PO 1,800 mg BID JOURDAN Administration Gemfibrozil 600 mg 07/19/19 06:00 07/19/19 05:43 Lopid PO 600 mg 0600 [facility] Administration Glipizide 5 mg 07/18/19 17:00 07/19/19 17:22 Glucotrol PO 5 mg BID-WM JOURDAN Administration Ceftriaxone Sodium 2 gm/ 100 mls @ 200 mls/hr 07/12/19 14:00 07/19/19 14:02 Sodium Chloride IVPB 100 mls 1400 J[facility] Administration Metformin HCl 500 mg 07/18/19 17:00 07/19/19 17:22 Glucophage PO 500 mg BID-WM [facility]DAN Administration Metoprolol Succinate 50 mg 07/08/19 09:00 07/19/19 08:26 Toprol Xl PO 50 mg BID JOURDAN Administration Spironolactone 25 mg 07/08/19 09:00 07/19/19 08:26 Aldactone PO 25 mg DAILY JOURDAN Administration Warfarin Sodium 7.5 mg 07/12/19 17:00 07/19/19 17:22 Coumadin PO 7.5 mg SuMoWeFr@1700 [facility] Administration Warfarin Sodium 5 mg 07/11/19 17:00 07/18/19 16:46 Coumadin PO 5 mg TuThSa@1700 [facility] Administration - Exam General Appearance: NAD, awake alert Eye: PERRL, anicteric sclera ENT: normocephalic atraumatic, moist mucosa Neck: supple, no JVD Heart: no murmur, irregular Respiratory: CTAB, no wheezes Gastrointestinal: soft, non-tender, non-distended, normal bowel sounds Extremities: no clubbing Extremities - other findings: trace edema b/l lower ext Skin - other findings: erythema bilateral lower ext Neurological: cranial nerve grossly intact, normal sensation to touch, no focal deficits Hosp A/P (1) Cellulitis Code(s): L03.90 - CELLULITIS, UNSPECIFIED Status: Acute Qualifiers: Site of cellulitis: extremity Site of cellulitis of extremity: lower extremity Laterality: left Qualified Code(s): L03.116 - Cellulitis of left lower limb Plan: continue current antibiotic regime, Rocephin per ID, will transition to oral antibiotics with discharge planning per ID (2) Peripheral vascular disease Code(s): I73.9 - PERIPHERAL VASCULAR DISEASE, UNSPECIFIED Status: Acute Plan: continue medical therapy with statin and antiplatelates (3) Sepsis Code(s): A41.9 - SEPSIS, UNSPECIFIED ORGANISM Status: Acute Plan: continue with empiric IV antibiotics (4) Atrial fibrillation, chronic Code(s): I48.2 - CHRONIC ATRIAL FIBRILLATION Status: Chronic
[2019-07-20 05:54] LABS: Prothrombin Time 22.6 SEC (12.0-14.7)
[2019-07-20] MEDS: Furosemide 40 MG TAB PO SCH ×2 (05:54→14:34)
[2019-07-20] MEDS: Gemfibrozil 600 MG TAB PO SCH (05:54)
[2019-07-20] MEDS: Gabapentin 300 MG CAP PO SCH ×2 (08:14→20:20)
[2019-07-20] MEDS: metFORMIN 500 MG TAB PO SCH ×2 (08:15→16:50)
[2019-07-20] MEDS: Ascorbic Acid 500 mg Chewable Tablet PO SCH (08:15)
[2019-07-20] MEDS: Allopurinol 100 MG TAB PO SCH (08:15)
[2019-07-20] MEDS: Spironolactone 25 MG TAB PO SCH (08:15)
[2019-07-20] MEDS: Fenofibrate Nanocrystallized 145 MG TAB PO SCH (08:15)
[2019-07-20] MEDS: glipiZIDE 5 MG TAB PO SCH ×2 (08:16→16:50)
[2019-07-20] MEDS: HYDROcodone/Acetaminophen 10/325 mg Tablet PO PRN ×3 (08:31→18:31)
[2019-07-20] MEDS: cefTRIAXone\\ROCEPHIN 2 GM in Sodium Chloride 0.9% 100 ML IVPB SCH (14:34)
[2019-07-20] MEDS: Warfarin Sodium 5 MG TAB PO SCH (16:51)
--- NOTE | 2019-07-20 17:10 | PDOC.HOSPP ---
- Subjective Encounter Date: 07/20/19 Subjective: has no complaints; dressing were changed earlier this morning; tolerating IV antibiotics; awaiting outpatient arrangement for wound care; per ID recommendations will need several days of IV antibiotics prior to discharge - Objective Vital Signs & Weight: Vital Signs (12 hours) Temp Pulse Resp BP Pulse Ox 07/20/19 08:00 96 07/20/19 07:42 97.8 F 93 20 101/64 96 Weight Admit Weight 434 lb 12.025 oz Weight 444 lb 5 oz Most Recent Monitor Data Heart Rate from ECG 98 NIBP 119/60 NIBP BP-Mean 79 Respiration from ECG 15 SpO2 83 I&O: 07/19/19 07/20/19 07/21/19 06:59 06:59 06:59 Intake Total 3630 1800 Balance 3630 1800 Result Diagrams: 07/14/19 08:52 07/15/19 05:45 Additional Labs: Accuchecks 07/20/19 07/20/19 07/20/19 16:47 11:38 04:09 POC Glucose 184 H 252 H 106 07/19/19 07/19/19 19:33 16:47 POC Glucose 232 H 212 H Hospitalist ROS - Review of Systems Respiratory: denies: shortness of breath Cardiovascular: denies: chest pain Gastrointestinal: denies: abdominal pain Skin: denies: lesions - Medication Medications: Active Medications Generic Name Dose Route Start Last Admin Trade Name Freq PRN Reason Stop Dose Admin Acetaminophen 650 mg 07/08/19 04:57 07/11/19 16:22 Tylenol PO 650 mg Q4H PRN Administration Headache/Fever/Mild Pain (1-3) Hydrocodone Bitart/Acetaminophen 1 tab 07/19/19 09:04 07/20/19 14:39 [place] 10/325 PO 1 tab Q4H PRN Administration Pain Allopurinol 100 mg 07/08/19 09:00 07/20/19 08:15 Zyloprim PO 100 mg DAILY JOURDAN Administration Ascorbic Acid 500 mg 07/09/19 09:00 07/20/19 08:15 Vitamin C PO 500 mg DAILY JOURDAN Administration Cyclobenzaprine HCl 10 mg 07/08/19 08:27 07/19/19 08:26 Flexeril PO 10 mg DAILY PRN Administration Muscle Spasm Fenofibrate 145 mg 07/09/19 09:00 07/20/19 08:15 Tricor PO 145 mg DAILY JOURDAN Administration Furosemide 40 mg 07/18/19 15:00 07/20/19 14:34 Lasix PO 40 mg 0600,1500 JOURDAN Administration Gabapentin 1,800 mg 07/08/19 21:00 07/20/19 08:14 Neurontin PO 1,800 mg BID JOURDAN Administration Gemfibrozil 600 mg 07/19/19 06:00 07/20/19 05:54 Lopid PO 600 mg 0600 JOURDAN Administration Glipizide 5 mg 07/18/19 17:00 07/20/19 16:50 Glucotrol PO 5 mg BID-WM JOURDAN Administration Ceftriaxone Sodium 2 gm/ 100 mls @ 200 mls/hr 07/12/19 14:00 07/20/19 14:34 Sodium Chloride IVPB 100 mls 1400 JOURDAN Administration Metformin HCl 500 mg 07/18/19 17:00 07/20/19 16:50 Glucophage PO 500 mg BID-WM JOURDAN Administration Metoprolol Succinate 50 mg 07/08/19 09:00 07/20/19 08:18 Toprol Xl PO 50 mg BID JOURDAN Administration Sodium Chloride 10 ml 07/19/19 21:00 07/20/19 08:16 Flush - Normal Saline IVF 10 ml Q12HR JOURDAN Administration Spironolactone 25 mg 07/08/19 09:00 07/20/19 08:15 Aldactone PO 25 mg DAILY JOURDAN Administration Warfarin Sodium 7.5 mg 07/12/19 17:00 07/19/19 17:22 Coumadin PO 7.5 mg SuMoWeFr@1700 JOURDAN Administration Warfarin Sodium 5 mg 07/11/19 17:00 07/20/19 16:51 Coumadin PO 5 mg TuThSa@1700 JOURDAN Administration - Exam General Appearance: NAD, awake alert Eye: PERRL, anicteric sclera ENT: normocephalic atraumatic, moist mucosa Neck: supple, no JVD Heart: RRR, no murmur Respiratory: CTAB, no wheezes, no rales, no ronchi Gastrointestinal: soft, non-tender, non-distended Extremities: no cyanosis, no clubbing Skin: normal turgor, no rashes Skin - other findings: receding erythema of bilaterla lower ext Neurological: cranial nerve grossly intact, no focal deficits Musculoskeletal: normal tone, normal strength Psychiatric: normal affect, normal behavior, A&O x 3, oriented to person Hosp A/P (1) Cellulitis Code(s): L03.90 - CELLULITIS, UNSPECIFIED Status: Acute Qualifiers: Site of cellulitis: extremity Site of cellulitis of extremity: lower extremity Laterality: left Qualified Code(s): L03.116 - Cellulitis of left lower limb Plan: will need a few more days of IV antibiotics per ID; will repeat labs (2) Peripheral vascular disease Code(s): I73.9 - PERIPHERAL VASCULAR DISEASE, UNSPECIFIED Status: Acute Plan: continue current medical therapy (3) Sepsis Code(s): A41.9 - SEPSIS, UNSPECIFIED ORGANISM Status: Acute Plan: now resolved (4) Atrial fibrillation, chronic Code(s): I48.2 - CHRONIC ATRIAL FIBRILLATION Status: Chronic Plan: rate controlled; continue with negative inotropes
[2019-07-21] MEDS: Furosemide 40 MG TAB PO SCH ×2 (05:15→13:59)
[2019-07-21] MEDS: Gemfibrozil 600 MG TAB PO SCH (05:15)
[2019-07-21 05:39] LABS: #Basophils 0.1 thou/uL (0.0-0.2); #Eosinphils 0.3 thou/uL (0.0-0.7); #Lymphocytes 2.5 thou/uL (1.20-3.40); #Monocytes 1.3 thou/uL (0.11-0.59); #Neutrophils 6.9 thou/uL (1.40-6.50); %Basophils 0.5 % (0.0-1.0); %Eosinophils 2.9 % (0.0-10.0); %Lymphocytes 22.6 % (21.0-51.0); %Monocytes 11.9 % (0.0-10.0); %Neutrophils 62.1 % (42.0-75.0); Mean Corpuscular HGB CONC 33.7 g/dL (32.0-36.0); Mean Corpuscular Volume 94.8 fL (78.0-98.0); Platelet Count 368 thou/uL (130-400); Red Blood Cell (RBC) Count 4.05 mill/uL (4.70-6.10); White Blood Cell (WBC) Count 11.1 thou/uL (4.8-10.8)
[2019-07-21 05:51] LABS: INR-International Normal Ratio 2.1; Prothrombin Time 23.3 SEC (12.0-14.7)
[2019-07-21 05:55] LABS: Anion Gap 13 mmol/L (10-20); BUN (Urea Nitrogen) 13 mg/dL (8.9-20.6); Calc. Creatinine Clearance 277 mL/min (70-130); Calcium 9.2 mg/dL (7.8-10.44); Carbon Dioxide 28 mmol/L (22-29); Chloride 98 mmol/L (98-107); Estimated GFR-MDRD 87; Glucose 82 mg/dL (70-105); Potassium 3.7 mmol/L (3.5-5.1); Sodium 135 mmol/L (136-145)
[2019-07-21] MEDS: metFORMIN 500 MG TAB PO SCH ×2 (08:31→16:58)
[2019-07-21] MEDS: Gabapentin 300 MG CAP PO SCH ×2 (08:31→21:14)
[2019-07-21] MEDS: Fenofibrate Nanocrystallized 145 MG TAB PO SCH (08:31)
[2019-07-21] MEDS: glipiZIDE 5 MG TAB PO SCH ×2 (08:31→16:58)
[2019-07-21] MEDS: Spironolactone 25 MG TAB PO SCH (08:31)
[2019-07-21] MEDS: Ascorbic Acid 500 mg Chewable Tablet PO SCH (08:31)
[2019-07-21] MEDS: Allopurinol 100 MG TAB PO SCH (08:31)
[2019-07-21] MEDS: HYDROcodone/Acetaminophen 10/325 mg Tablet PO PRN ×3 (08:35→21:56)
[2019-07-21] MEDS: cefTRIAXone\\ROCEPHIN 2 GM in Sodium Chloride 0.9% 100 ML IVPB SCH (13:57)
[2019-07-21] MEDS: Warfarin Sodium 7.5 MG TAB PO SCH (16:59)
--- NOTE | 2019-07-21 17:53 | PRG ---
DATE OF SERVICE: 07/21/2019 SUBJECTIVE: There is further improvement but still quite slow improvement. No headaches, shortness of breath, or abdominal pain. No diarrhea. OBJECTIVE: VITAL SIGNS: Normal temperature, blood pressure 120/80, pulse 100, respiratory rate 19 to 20, and O2 saturation 97. SKIN: Extensive areas of blistering with some dry scab overlying it, but steadily improving. Still quite a bit of erythema. LUNGS: Clear. ABDOMEN: Soft. Does not have a Gonsales catheter. LABORATORY DATA: White cell count down to 11,000, hemoglobin 13, platelets 368. ASSESSMENT AND DISCUSSION: Type 2 diabetes, cardiomyopathy, venous insufficiency, cellulitis, left lower extremity with steady improvement on Rocephin, probably the next 2 days be able to switch him to oral Keflex for discharge planning. Job ID: [id number]
--- NOTE | 2019-07-21 21:41 | PDOC.HOSPP ---
- Subjective Encounter Date: 07/21/19 Subjective: feels better, tolerating oral intake; currently on IV antibiotics; will transition to oral antibiotics per ID - Objective Vital Signs & Weight: Vital Signs (12 hours) Temp Pulse Resp BP Pulse Ox 07/21/19 20:00 97.7 F 96 18 98/66 93 L Weight Admit Weight 434 lb 12.025 oz Weight 444 lb 5 oz Most Recent Monitor Data Heart Rate from ECG 98 NIBP 119/60 NIBP BP-Mean 79 Respiration from ECG 15 SpO2 83 I&O: 07/20/19 07/21/19 07/22/19 06:59 06:59 06:59 Intake Total 1800 1100 1300 Balance 1800 1100 1300 Result Diagrams: 07/21/19 05:20 07/21/19 05:20 Additional Labs: Accuchecks 07/21/19 07/21/19 07/21/19 19:28 16:39 10:08 POC Glucose 186 H 174 H 219 H 07/21/19 04:27 POC Glucose 89 Hospitalist ROS - Review of Systems Respiratory: denies: shortness of breath Cardiovascular: denies: chest pain Gastrointestinal: denies: abdominal pain - Medication Medications: Active Medications Generic Name Dose Route Start Last Admin Trade Name Freq PRN Reason Stop Dose Admin Acetaminophen 650 mg 07/08/19 04:57 07/11/19 16:22 Tylenol PO 650 mg Q4H PRN Administration Headache/Fever/Mild Pain (1-3) Hydrocodone Bitart/Acetaminophen 1 tab 07/19/19 09:04 07/21/19 17:01 [place] 10/325 PO 1 tab Q4H PRN Administration Pain Allopurinol 100 mg 07/08/19 09:00 07/21/19 08:31 Zyloprim PO 100 mg DAILY JOURDAN Administration Ascorbic Acid 500 mg 07/09/19 09:00 07/21/19 08:31 Vitamin C PO 500 mg DAILY JOURDAN Administration Cyclobenzaprine HCl 10 mg 07/08/19 08:27 07/19/19 08:26 Flexeril PO 10 mg DAILY PRN Administration Muscle Spasm Fenofibrate 145 mg 07/09/19 09:00 07/21/19 08:31 Tricor PO 145 mg DAILY JOURDAN Administration Furosemide 40 mg 07/18/19 15:00 07/21/19 13:59 Lasix PO 40 mg 0600,1500 JOURDAN Administration Gabapentin 1,800 mg 07/08/19 21:00 07/21/19 21:14 Neurontin PO 1,800 mg BID JOURDAN Administration Gemfibrozil 600 mg 07/19/19 06:00 07/21/19 05:15 Lopid PO 600 mg 0600 JOURDAN Administration Glipizide 5 mg 07/18/19 17:00 07/21/19 16:58 Glucotrol PO 5 mg BID-WM JOURDAN Administration Ceftriaxone Sodium 2 gm/ 100 mls @ 200 mls/hr 07/12/19 14:00 07/21/19 13:57 Sodium Chloride IVPB 100 mls 1400 JOURDAN Administration Metformin HCl 500 mg 07/18/19 17:00 07/21/19 16:58 Glucophage PO 500 mg BID-WM JOURDAN Administration Metoprolol Succinate 50 mg 07/08/19 09:00 07/21/19 21:16 Toprol Xl PO Not Given BID [facility] Sodium Chloride 10 ml 07/19/19 21:00 07/21/19 08:32 Flush - Normal Saline IVF 10 ml Q12HR JOURDAN Administration Spironolactone 25 mg 07/08/19 09:00 07/21/19 08:31 Aldactone PO 25 mg DAILY JOURDAN Administration Warfarin Sodium 7.5 mg 07/12/19 17:00 07/21/19 16:59 Coumadin PO 7.5 mg SuMoWeFr@1700 [facility] Administration Warfarin Sodium 5 mg 07/11/19 17:00 07/20/19 16:51 Coumadin PO 5 mg TuThSa@1700 JOURDAN Administration - Exam General Appearance: NAD, awake alert Eye: PERRL, anicteric sclera ENT: normocephalic atraumatic, no oropharyngeal lesions, moist mucosa Neck: supple, symmetric, no JVD, no thyromegaly, no lymphadenopathy, no carotid bruit Heart: RRR, no murmur, no gallops, no rubs, normal peripheral pulses Respiratory: CTAB, no wheezes, no rales, no ronchi, normal chest expansion, no tachypnea, normal percussion Gastrointestinal: soft, non-tender, non-distended, normal bowel sounds, no palpable masses, no hepatomegaly, no splenomegaly, no bruit Extremities: no cyanosis, no clubbing, no edema Skin: normal turgor Skin - other findings: mild erythema to left leg Neurological: cranial nerve grossly intact, normal sensation to touch, no weakness, no focal deficits, no new deficit Musculoskeletal: normal tone, normal strength, no muscle wasting Psychiatric: normal affect, normal behavior, A&O x 3 Hosp A/P (1) Cellulitis Code(s): L03.90 - CELLULITIS, UNSPECIFIED Status: Acute Qualifiers: Site of cellulitis: extremity Site of cellulitis of extremity: lower extremity Laterality: left Qualified Code(s): L03.116 - Cellulitis of left lower limb Plan: continue with IV antibiotics, local wound care (2) Peripheral vascular disease Code(s): I73.9 - PERIPHERAL VASCULAR DISEASE, UNSPECIFIED Status: Acute (3) Sepsis Code(s): A41.9 - SEPSIS, UNSPECIFIED ORGANISM Status: Acute (4) Atrial fibrillation, chronic Code(s): I48.2 - CHRONIC ATRIAL FIBRILLATION Status: Chronic Plan: continue with negative inotropes;
[2019-07-22] MEDS: Furosemide 40 MG TAB PO SCH ×2 (04:52→14:36)
[2019-07-22] MEDS: Gemfibrozil 600 MG TAB PO SCH (04:53)
[2019-07-22] MEDS: HYDROcodone/Acetaminophen 10/325 mg Tablet PO PRN ×3 (04:53→21:34)
[2019-07-22 05:57] LABS: INR-International Normal Ratio 1.9; Prothrombin Time 21.9 SEC (12.0-14.7)
[2019-07-22] MEDS: Gabapentin 300 MG CAP PO SCH ×2 (08:07→20:05)
[2019-07-22] MEDS: metFORMIN 500 MG TAB PO SCH ×2 (08:09→17:00)
[2019-07-22] MEDS: glipiZIDE 5 MG TAB PO SCH ×2 (08:10→17:00)
[2019-07-22] MEDS: Spironolactone 25 MG TAB PO SCH (08:10)
[2019-07-22] MEDS: Fenofibrate Nanocrystallized 145 MG TAB PO SCH (08:10)
[2019-07-22] MEDS: Ascorbic Acid 500 mg Chewable Tablet PO SCH (08:10)
[2019-07-22] MEDS: Allopurinol 100 MG TAB PO SCH (08:11)
[2019-07-22] MEDS: cefTRIAXone\\ROCEPHIN 2 GM in Sodium Chloride 0.9% 100 ML IVPB SCH (14:36)
[2019-07-22] MEDS: Warfarin Sodium 7.5 MG TAB PO SCH (17:01)
--- NOTE | 2019-07-22 17:11 | PDOC.HOSPP ---
- Subjective Encounter Date: 07/22/19 Subjective: has no complaints, currently on IV Rocephin, tolerating oral intake - Objective Vital Signs & Weight: Vital Signs (12 hours) Temp Pulse Resp BP Pulse Ox 07/22/19 08:00 97 07/22/19 07:18 98.0 F 82 18 116/72 97 Weight Admit Weight 434 lb 12.025 oz Weight 444 lb 5 oz Most Recent Monitor Data Heart Rate from ECG 98 NIBP 119/60 NIBP BP-Mean 79 Respiration from ECG 15 SpO2 83 I&O: 07/21/19 07/22/19 07/23/19 06:59 06:59 06:59 Intake Total 1100 1300 Balance 1100 1300 Result Diagrams: 07/21/19 05:20 07/21/19 05:20 Additional Labs: Accuchecks 07/22/19 07/22/19 07/22/19 15:58 11:17 04:43 POC Glucose 198 H 283 H 95 07/21/19 19:28 POC Glucose 186 H Hospitalist ROS - Review of Systems Respiratory: denies: shortness of breath Cardiovascular: denies: chest pain Gastrointestinal: denies: abdominal pain - Medication Medications: Active Medications Generic Name Dose Route Start Last Admin Trade Name Freq PRN Reason Stop Dose Admin Acetaminophen 650 mg 07/08/19 04:57 07/11/19 16:22 Tylenol PO 650 mg Q4H PRN Administration Headache/Fever/Mild Pain (1-3) Hydrocodone Bitart/Acetaminophen 1 tab 07/19/19 09:04 07/22/19 17:03 [place] 10/325 PO 1 tab Q4H PRN Administration Pain Allopurinol 100 mg 07/08/19 09:00 07/22/19 08:11 Zyloprim PO 100 mg DAILY JOURDAN Administration Ascorbic Acid 500 mg 07/09/19 09:00 07/22/19 08:10 Vitamin C PO 500 mg DAILY JOURDAN Administration Cyclobenzaprine HCl 10 mg 07/08/19 08:27 07/19/19 08:26 Flexeril PO 10 mg DAILY PRN Administration Muscle Spasm Fenofibrate 145 mg 07/09/19 09:00 07/22/19 08:10 Tricor PO 145 mg DAILY JOURDAN Administration Furosemide 40 mg 07/18/19 15:00 07/22/19 14:36 Lasix PO 40 mg 0600,1500 JOURDAN Administration Gabapentin 1,800 mg 07/08/19 21:00 07/22/19 08:07 Neurontin PO 1,800 mg BID JOURDAN Administration Gemfibrozil 600 mg 07/19/19 06:00 07/22/19 04:53 Lopid PO 600 mg 0600 JOURDAN Administration Glipizide 5 mg 07/18/19 17:00 07/22/19 17:00 Glucotrol PO 5 mg BID-WM JOURDAN Administration Ceftriaxone Sodium 2 gm/ 100 mls @ 200 mls/hr 07/12/19 14:00 07/22/19 14:36 Sodium Chloride IVPB 100 mls 1400 JOURDAN Administration Metformin HCl 500 mg 07/18/19 17:00 07/22/19 17:00 Glucophage PO 500 mg BID-WM JOURDAN Administration Metoprolol Succinate 50 mg 07/08/19 09:00 07/22/19 08:09 Toprol Xl PO 50 mg BID JOURDAN Administration Sodium Chloride 10 ml 07/19/19 21:00 07/22/19 08:11 Flush - Normal Saline IVF 10 ml Q12HR JOURDAN Administration Spironolactone 25 mg 07/08/19 09:00 07/22/19 08:10 Aldactone PO 25 mg DAILY JOURDAN Administration Warfarin Sodium 7.5 mg 07/12/19 17:00 07/22/19 17:01 Coumadin PO 7.5 mg SuMoWeFr@1700 [facility] Administration Warfarin Sodium 5 mg 07/11/19 17:00 07/20/19 16:51 Coumadin PO 5 mg TuThSa@1700 J[facility] Administration - Exam General Appearance: NAD, awake alert Eye: PERRL, anicteric sclera ENT: normocephalic atraumatic, no oropharyngeal lesions, moist mucosa Neck: supple, symmetric, no JVD, no thyromegaly, no lymphadenopathy, no carotid bruit Heart: RRR, no murmur, no gallops, no rubs, normal peripheral pulses Respiratory: CTAB, no wheezes, no rales, no ronchi, normal chest expansion, no tachypnea, normal percussion Gastrointestinal: soft, non-tender, non-distended, normal bowel sounds, no palpable masses, no hepatomegaly, no splenomegaly, no bruit Extremities: no cyanosis, no clubbing, no edema Skin: normal turgor, no rashes Skin - other findings: left leg with dressing in place; wounds noted Neurological: cranial nerve grossly intact, normal sensation to touch, no weakness, no focal deficits, no new deficit Musculoskeletal: normal tone, normal strength, no muscle wasting Psychiatric: normal affect, normal behavior, A&O x 3 Hosp A/P (1) Cellulitis Code(s): L03.90 - CELLULITIS, UNSPECIFIED Status: Acute Qualifiers: Site of cellulitis: extremity Site of cellulitis of extremity: lower extremity Laterality: left Qualified Code(s): L03.116 - Cellulitis of left lower limb Plan: continue IV antibiotics per ID; will transition to oral antibiotics when okay with ID (2) Peripheral vascular disease Code(s): I73.9 - PERIPHERAL VASCULAR DISEASE, UNSPECIFIED Status: Acute (3) Sepsis Code(s): A41.9 - SEPSIS, UNSPECIFIED ORGANISM Status: Acute Plan: now resolved; continue with empiric IV antibiotics (4) Atrial fibrillation, chronic Code(s): I48.2 - CHRONIC ATRIAL FIBRILLATION Status: Chronic
[2019-07-22] MEDS ORDERED: Sterile Water 10 ML VIAL IVP SCH (18:45)
[2019-07-22] MEDS ORDERED: Activase 2 MG VIAL CATH SCH (18:45)
[2019-07-23] MEDS: Furosemide 40 MG TAB PO SCH ×2 (06:02→14:04)
[2019-07-23] MEDS: Gemfibrozil 600 MG TAB PO SCH (06:02)
[2019-07-23] MEDS: HYDROcodone/Acetaminophen 10/325 mg Tablet PO PRN ×3 (06:16→21:42)
[2019-07-23] MEDS: Gabapentin 300 MG CAP PO SCH ×2 (08:18→20:09)
[2019-07-23] MEDS: Fenofibrate Nanocrystallized 145 MG TAB PO SCH (08:22)
[2019-07-23] MEDS: Allopurinol 100 MG TAB PO SCH (08:22)
[2019-07-23] MEDS: glipiZIDE 5 MG TAB PO SCH ×2 (08:22→17:13)
[2019-07-23] MEDS: Ascorbic Acid 500 mg Chewable Tablet PO SCH (08:23)
[2019-07-23] MEDS: metFORMIN 500 MG TAB PO SCH ×2 (08:23→17:11)
[2019-07-23] MEDS: Spironolactone 25 MG TAB PO SCH (08:24)
[2019-07-23 08:57] LABS: INR-International Normal Ratio 2.3; Prothrombin Time 25.2 SEC (12.0-14.7)
[2019-07-23 09:01] LABS: Hemoglobin 13.1 g/dL (14.0-18.0); Mean Corpuscular HGB CONC 33.4 g/dL (32.0-36.0); Mean Corpuscular Hemoglobin 31.6 pg (27.0-31.0); Mean Corpuscular Volume 94.7 fL (78.0-98.0); Mean Platelet Volume 7.1 fL (7.4-10.4); Platelet Count 366 thou/uL (130-400); RBC Distribution Width 13.1 % (11.5-14.5); Red Blood Cell (RBC) Count 4.16 mill/uL (4.70-6.10); White Blood Cell (WBC) Count 10.1 thou/uL (4.8-10.8)
[2019-07-23 09:27] LABS: Band 3 % (5-11); Eosinophils 3 % (0-10); Lymphocytes 32 % (21-51); MDiff Complete? YES; Monocytes 8 % (0-10); Neutrophil 53 % (42-75); RBC Morphology Normal
[2019-07-23] MEDS ORDERED: cefTRIAXone\\ROCEPHIN 2 GM in Sodium Chloride 0.9% 100 ML IVPB SCH (14:00)
--- NOTE | 2019-07-23 15:30 | PDOC.HOSPP ---
- Subjective Subjective: Seen and examined. Patient states he is improving. Significantly less lower extremity edema since I saw the patient last. Patient is trying to cut back on fluid intake. Patient's body is responding to antibiotic therapy, the question is when it will be safe to transition him to oral antibiotics. Patient still has significant lower extremity cellulitis /chronic wounds with venous stasis dermatitis. Dry scabbing is improving. - Objective Vital Signs & Weight: Vital Signs (12 hours) Temp Pulse Resp BP Pulse Ox 07/23/19 08:00 97 07/23/19 07:23 98.1 F 92 20 111/78 97 07/23/19 04:00 97.5 F L 78 18 123/71 97 Weight Admit Weight 434 lb 12.025 oz Weight 444 lb 5 oz Most Recent Monitor Data Heart Rate from ECG 98 NIBP 119/60 NIBP BP-Mean 79 Respiration from ECG 15 SpO2 83 I&O: 07/22/19 07/23/19 07/24/19 06:59 06:59 06:59 Intake Total 1300 Balance 1300 Result Diagrams: 07/23/19 08:36 07/21/19 05:20 Additional Labs: Accuchecks 07/23/19 07/22/19 07/22/19 04:43 23:41 19:44 POC Glucose 95 148 H 174 H 07/22/19 15:58 POC Glucose 198 H Hospitalist ROS - Review of Systems All other systems reviewed; all pertinent +/- noted in HPI/Subj - Medication Medications: Active Medications Generic Name Dose Route Start Last Admin Trade Name Freq PRN Reason Stop Dose Admin Acetaminophen 650 mg 07/08/19 04:57 07/11/19 16:22 Tylenol PO 650 mg Q4H PRN Administration Headache/Fever/Mild Pain (1-3) Hydrocodone Bitart/Acetaminophen 1 tab 07/19/19 09:04 07/23/19 06:16 [place] 10/325 PO 1 tab Q4H PRN Administration Pain Allopurinol 100 mg 07/08/19 09:00 07/23/19 08:22 Zyloprim PO 100 mg DAILY JOURDAN Administration Ascorbic Acid 500 mg 07/09/19 09:00 07/23/19 08:23 Vitamin C PO 500 mg DAILY JOURDAN Administration Cyclobenzaprine HCl 10 mg 07/08/19 08:27 07/19/19 08:26 Flexeril PO 10 mg DAILY PRN Administration Muscle Spasm Fenofibrate 145 mg 07/09/19 09:00 07/23/19 08:22 Tricor PO 145 mg DAILY JOURDAN Administration Furosemide 40 mg 07/18/19 15:00 07/23/19 14:04 Lasix PO 40 mg 0600,1500 JOURDAN Administration Gabapentin 1,800 mg 07/08/19 21:00 07/23/19 08:18 Neurontin PO 1,800 mg BID JOURDAN Administration Gemfibrozil 600 mg 07/19/19 06:00 07/23/19 06:02 Lopid PO 600 mg 0600 JOURDAN Administration Glipizide 5 mg 07/18/19 17:00 07/23/19 08:22 Glucotrol PO 5 mg BID-WM JOURDAN Administration Ceftriaxone Sodium 2 gm/ 100 mls @ 0 mls/hr 07/23/19 14:00 07/23/19 14:03 Sodium Chloride IVPB 100 mls 1400 JOURDAN Administration Metformin HCl 500 mg 07/18/19 17:00 07/23/19 08:23 Glucophage PO 500 mg BID-WM JOURDAN Administration Metoprolol Succinate 50 mg 07/08/19 09:00 07/23/19 08:19 Toprol Xl PO 50 mg BID JOURDAN Administration Sodium Chloride 10 ml 07/19/19 21:00 07/23/19 08:25 Flush - Normal Saline IVF 10 ml Q12HR JOURDAN Administration Spironolactone 25 mg 07/08/19 09:00 07/23/19 08:24 Aldactone PO 25 mg DAILY JOURADN Administration Warfarin Sodium 7.5 mg 07/12/19 17:00 07/22/19 17:01 Coumadin PO 7.5 mg [id number]@1700 JOURDAN Administration Warfarin Sodium 5 mg 07/11/19 17:00 07/20/19 16:51 Coumadin PO 5 mg TuThSa@1700 JOURDAN Administration - Exam General Appearance: NAD Eye: anicteric sclera ENT: normocephalic atraumatic, moist mucosa Neck: supple, symmetric, no lymphadenopathy Heart: no murmur, no gallops, no rubs Respiratory: CTAB, no wheezes, no rales, no ronchi Gastrointestinal: soft, non-tender, non-distended, normal bowel sounds, no guarding, no rigidity Extremities: no clubbing, 2+ LE edema (Much improved since I saw the patient last) Skin: normal turgor (Venous stasis dermatitis chronic) Skin - other findings: LE wounds healing - see wound care pictures for details Neurological: cranial nerve grossly intact, normal sensation to touch, no weakness Musculoskeletal: no muscle wasting Psychiatric: normal affect, A&O x 3 Hosp A/P (1) Cellulitis Code(s): L03.90 - CELLULITIS, UNSPECIFIED Status: Acute Qualifiers: Site of cellulitis: extremity Site of cellulitis of extremity: lower extremity Laterality: left Qualified Code(s): L03.116 - Cellulitis of left lower limb (2) Peripheral vascular disease Code(s): I73.9 - PERIPHERAL VASCULAR DISEASE, UNSPECIFIED Status: Chronic (3) Sepsis Code(s): A41.9 - SEPSIS, UNSPECIFIED ORGANISM Status: Resolved (4) Anticoagulant long-term use Code(s): Z79.01 - BUSINESS INTELLIGENCE MANAGER (CURRENT) USE OF ANTICOAGULANTS Status: Chronic (5) Atrial fibrillation, chronic Code(s): I48.2 - CHRONIC ATRIAL FIBRILLATION * DO NOT USE * Status: Chronic (6) Cardiomyopathy Code(s): I42.9 - CARDIOMYOPATHY, UNSPECIFIED Status: Chronic Qualifiers: Cardiomyopathy type: unspecified Qualified Code(s): I42.9 - Cardiomyopathy , unspecified (7) Lymphedema Code(s): I89.0 - LYMPHEDEMA, NOT ELSEWHERE CLASSIFIED Status: Chronic (8) Morbid obesity Code(s): E66.01 - MORBID (SEVERE) OBESITY DUE TO EXCESS CALORIES Status: Chronic (9) Type 2 diabetes mellitus Status: Chronic Qualifiers: Diabetes mellitus terminal make up operator insulin use: with intermediate use Diabetes mellitus complication status: without complication Qualified Code(s): E11.9 - Type 2 diabetes mellitus without complications; Z79.4 - intermediate manager (current) use of insulin - Plan Plan: medical/surgical unit infectious disease consultation, recommendations appreciated continue IV antibiotics per infectious disease specialist the question is when the it will be safe to transition to oral antibiotics and which antibiotics patient lower extremity edema significantly improved and cellulitis does seem to be responding to these IV antibiotics patient with chronic venous stasis dermatitis continue long and short acting insulin for glucose control WBC count normalized on current antibiotics replace electrolytes as needed continue other home medications as able
[2019-07-23] MEDS: Warfarin Sodium 5 MG TAB PO SCH (17:11)
[2019-07-24] MEDS: Gemfibrozil 600 MG TAB PO SCH (05:30)
[2019-07-24] MEDS: Furosemide 40 MG TAB PO SCH ×2 (05:30→16:23)
[2019-07-24 05:54] LABS: INR-International Normal Ratio 2.5; Prothrombin Time 26.8 SEC (12.0-14.7)
[2019-07-24] MEDS: HYDROcodone/Acetaminophen 10/325 mg Tablet PO PRN ×3 (09:30→20:53)
[2019-07-24] MEDS: Allopurinol 100 MG TAB PO SCH (09:31)
[2019-07-24] MEDS: Fenofibrate Nanocrystallized 145 MG TAB PO SCH (09:31)
[2019-07-24] MEDS: metFORMIN 500 MG TAB PO SCH ×2 (09:32→16:23)
[2019-07-24] MEDS: Spironolactone 25 MG TAB PO SCH (09:32)
[2019-07-24] MEDS: glipiZIDE 5 MG TAB PO SCH ×2 (09:32→16:23)
[2019-07-24] MEDS: Gabapentin 300 MG CAP PO SCH ×2 (09:45→20:52)
[2019-07-24] MEDS: Ascorbic Acid 500 mg Chewable Tablet PO SCH (09:46)
--- NOTE | 2019-07-24 15:00 | PRG ---
DATE OF SERVICE: 07/24/2019 SUBJECTIVE: Feeling better, sitting by bedside. No pain in the left lower extremity. No headaches. Good appetite. No vomiting. No dyspnea or chest pain. No abdominal pain. No diarrhea. OBJECTIVE: VITAL SIGNS: T-max 98.2, blood pressure 120/70, pulse 82, respirations 17, O2 saturation 96. EXTREMITIES: Left leg is much improved and now mostly the residual in the aftermath of the inflammatory process. Still have plaque of eschar in the medial aspect of the left thigh which should fall off in normal skin under the area. HEENT: Ocular movements conjugate. LUNGS: Clear to auscultation and percussion. S1 and S2 regular rate. ABDOMEN: Soft, not distended. LABORATORY DATA: White cell count is at 10.1, hemoglobin 13, platelets 366. Creatinine 0.92. ASSESSMENT AND DISCUSSION: Type 2 diabetes, cardiomyopathy, venous insufficiency with cellulitis and now ready to be discharged. We will switch him to oral Keflex. Treat for about 10 days and then switch him to penicillin V potassium 250 mg twice daily for 12 months as a secondary prophylaxis. Measure compressive dressings or stockings or wrap in addition to follow up in the clinic. Job ID: [id number]
--- NOTE | 2019-07-24 15:37 | PDOC.HOSPP ---
- Subjective Subjective: Seen and examined. Patient sitting up in chair breathing well on room air. Patient with lower extremity with clean and dry dressing that was placed by wound care. Patient with compressive stocking. Discussed and coordinating discharge planning. - Objective Vital Signs & Weight: Vital Signs (12 hours) Temp Pulse Resp BP BP Pulse Ox 07/24/19 11:00 97.7 F 82 17 129/78 96 07/24/19 07:00 97.7 F 82 19 125/80 93 L Weight Admit Weight 434 lb 12.025 oz Weight 444 lb 5 oz Most Recent Monitor Data Heart Rate from ECG 98 NIBP 119/60 NIBP BP-Mean 79 Respiration from ECG 15 SpO2 83 Result Diagrams: 07/23/19 08:36 07/21/19 05:20 Additional Labs: Accuchecks 07/24/19 07/24/19 07/23/19 11:26 04:14 19:37 POC Glucose 246 H 127 H 181 H 07/23/19 07/23/19 16:47 10:57 POC Glucose 128 H 204 H Hospitalist ROS - Review of Systems All other systems reviewed; all pertinent +/- noted in HPI/Subj - Medication Medications: Active Medications Generic Name Dose Route Start Last Admin Trade Name Freq PRN Reason Stop Dose Admin Acetaminophen 650 mg 07/08/19 04:57 07/11/19 16:22 Tylenol PO 650 mg Q4H PRN Administration Headache/Fever/Mild Pain (1-3) Hydrocodone Bitart/Acetaminophen 1 tab 07/19/19 09:04 07/24/19 09:30 [place] 10/325 PO 1 tab Q4H PRN Administration Pain Allopurinol 100 mg 07/08/19 09:00 07/24/19 09:31 Zyloprim PO 100 mg DAILY JOURDAN Administration Ascorbic Acid 500 mg 07/09/19 09:00 07/24/19 09:46 Vitamin C PO 500 mg DAILY JOURDAN Administration Cyclobenzaprine HCl 10 mg 07/08/19 08:27 07/19/19 08:26 Flexeril PO 10 mg DAILY PRN Administration Muscle Spasm Fenofibrate 145 mg 07/09/19 09:00 07/24/19 09:31 Tricor PO 145 mg DAILY JOURDAN Administration Furosemide 40 mg 07/18/19 15:00 07/24/19 05:30 Lasix PO 40 mg 0600,1500 JOURDAN Administration Gabapentin 1,800 mg 07/08/19 21:00 07/24/19 09:45 Neurontin PO 1,800 mg BID JOURDAN Administration Gemfibrozil 600 mg 07/19/19 06:00 07/24/19 05:30 Lopid PO 600 mg 0600 JOURDAN Administration Glipizide 5 mg 07/18/19 17:00 07/24/19 09:32 Glucotrol PO 5 mg BID-WM JOURDAN Administration Metformin HCl 500 mg 07/18/19 17:00 07/24/19 09:32 Glucophage PO 500 mg BID-WM JOURDAN Administration Metoprolol Succinate 50 mg 07/08/19 09:00 07/24/19 09:31 Toprol Xl PO 50 mg BID JOURDAN Administration Sodium Chloride 10 ml 07/19/19 21:00 07/24/19 09:32 Flush - Normal Saline IVF 10 ml Q12HR JOURDAN Administration Spironolactone 25 mg 07/08/19 09:00 07/24/19 09:32 Aldactone PO 25 mg DAILY JOURDAN Administration Warfarin Sodium 7.5 mg 07/12/19 17:00 07/22/19 17:01 Coumadin PO 7.5 mg [id number]@1700 JOURDAN Administration Warfarin Sodium 5 mg 07/11/19 17:00 07/23/19 17:11 Coumadin PO 5 mg TuThSa@1700 JOURDAN Administration - Exam General Appearance: NAD, awake alert Eye: anicteric sclera ENT: moist mucosa Neck: supple, no lymphadenopathy Heart: no murmur, no gallops, no rubs Respiratory: CTAB, no wheezes, no rales, no ronchi Gastrointestinal: soft, non-tender, non-distended, no guarding, no rigidity Extremities: 2+ LE edema Skin - other findings: Healing skin wounds with clean and dry dressing Neurological: cranial nerve grossly intact, no weakness Musculoskeletal: normal strength Psychiatric: normal affect, A&O x 3 Hosp A/P (1) Cellulitis Code(s): L03.90 - CELLULITIS, UNSPECIFIED Status: Acute Qualifiers: Site of cellulitis: extremity Site of cellulitis of extremity: lower extremity Laterality: left Qualified Code(s): L03.116 - Cellulitis of left lower limb (2) Peripheral vascular disease Code(s): I73.9 - PERIPHERAL VASCULAR DISEASE, UNSPECIFIED Status: Chronic (3) Sepsis Code(s): A41.9 - SEPSIS, UNSPECIFIED ORGANISM Status: Resolved (4) Anticoagulant long-term use Code(s): Z79.01 - BREAKER LAYER (CURRENT) USE OF ANTICOAGULANTS Status: Chronic (5) Atrial fibrillation, chronic Code(s): I48.2 - CHRONIC ATRIAL FIBRILLATION * DO NOT USE * Status: Chronic (6) Cardiomyopathy Code(s): I42.9 - CARDIOMYOPATHY, UNSPECIFIED Status: Chronic Qualifiers: Cardiomyopathy type: unspecified Qualified Code(s): I42.9 - Cardiomyopathy , unspecified (7) Lymphedema Code(s): I89.0 - LYMPHEDEMA, NOT ELSEWHERE CLASSIFIED Status: Chronic (8) Morbid obesity Code(s): E66.01 - MORBID (SEVERE) OBESITY DUE TO EXCESS CALORIES Status: Chronic (9) Type 2 diabetes mellitus Status: Chronic Qualifiers: Diabetes mellitus claims support specialist insulin use: with claims support specialist use Diabetes mellitus complication status: without complication Qualified Code(s): E11.9 - Type 2 diabetes mellitus without complications; Z79.4 - outer diameter grinder tool (current) use of insulin - Plan Plan: medical/surgical unit infectious disease consultation, recommendations appreciated Transition off IV antibiotics per infectious disease specialist D/c planning with oral antibiotics patient lower extremity edema significantly improved and cellulitis does seem to be responding to these IV antibiotics patient with chronic venous stasis dermatitis continue long and short acting insulin for glucose control WBC count normalized on current antibiotics replace electrolytes as needed continue other home medications as able
[2019-07-24] MEDS: Cephalexin 250 MG CAP PO SCH ×2 (16:24→21:00)
[2019-07-24] MEDS: Warfarin Sodium 7.5 MG TAB PO SCH (16:24)
[2019-07-25] MEDS: Cephalexin 250 MG CAP PO SCH (05:36)
[2019-07-25] MEDS: Gemfibrozil 600 MG TAB PO SCH (05:36)
[2019-07-25] MEDS: Furosemide 40 MG TAB PO SCH (05:36)
[2019-07-25 06:30] LABS: INR-International Normal Ratio 2.6; Prothrombin Time 27.2 SEC (12.0-14.7)
[2019-07-25 07:28] VITALS: TEMP 98.4
[2019-07-25] MEDS: Gabapentin 300 MG CAP PO SCH (08:17)
[2019-07-25] MEDS: glipiZIDE 5 MG TAB PO SCH (08:18)
[2019-07-25] MEDS: HYDROcodone/Acetaminophen 10/325 mg Tablet PO PRN (08:18)
[2019-07-25] MEDS: Ascorbic Acid 500 mg Chewable Tablet PO SCH (08:18)
[2019-07-25] MEDS: Allopurinol 100 MG TAB PO SCH (08:19)
[2019-07-25] MEDS: Fenofibrate Nanocrystallized 145 MG TAB PO SCH (08:19)
[2019-07-25] MEDS: metFORMIN 500 MG TAB PO SCH (08:20)
[2019-07-25] MEDS: Spironolactone 25 MG TAB PO SCH (08:20)
[2019-07-25 11:15] VITALS: BP 119/75
--- NOTE | 2019-07-25 19:47 | DIS ---
DATE OF ADMISSION: 07/08/2019 DATE OF DISCHARGE: 07/25/2019 REASON FOR HOSPITALIZATION: Lower extremity cellulitis and shortness of breath. SIGNIFICANT FINDINGS: The patient found to be in acute congestive heart failure and was effectively diuresed. The patient with left lower extremity cellulitis and chronic nonhealing skin wounds and was placed on IV antibiotics. PROCEDURES PERFORMED/TREATMENTS RENDERED: The patient had maximum medical therapy including IV antibiotics, IV Lasix therapy for acute congestive heart failure, and evaluation and treatment by Pulmonology/Critical Care, Infectious Disease specialist, and General Surgery. Please see full consultation and progress notes for details. With maximum medical therapy, the patient did improve to his normal functioning baseline status and was recommended safe for discharge by all specialists on 07/25/2019. CONDITION ON DISCHARGE: Stable. SPECIFIC INSTRUCTIONS FOR THE PATIENT/FAMILY: 1. The patient is recommended to take oral Keflex for the next 10 days. 2. After a ten-day course of Keflex, the patient is recommended to take penicillin V orally as directed for the next 1 year, this medication prescription will be given only in a one month supply and he must follow up with Infectious Disease for future prescriptions and management. 3. The patient recommended to follow up with Infectious Disease specialist in the next 7 to 10 days. 4. The patient is recommended to follow up with primary care physician in the next 5 to 7 days. 5. The patient is recommended to follow up with chocolate refining roller in the next 1 to 2 weeks. 6. The patient is recommended to follow up with all of his other specialists as directed. 7. Followup at [facility] in the next 1 to 2 days for dosing on Coumadin. DISCHARGE MEDICATIONS: 1. Insulin (Humulin R U-500 Leila). 2. Vitamin C. 3. Warfarin 5 mg one tablet p.o. daily as directed at the [facility]. 4. Metformin 1000 mg one tablet p.o. b.i.d. 5. Glipizide 5 mg one tablet p.o. b.i.d. 6. Spironolactone 25 mg one tablet p.o. daily. 7. Penicillin V 250 mg one tablet p.o. b.i.d., to be started after Keflex. 8. Keflex 500 mg q.8 hours for the next 10 days. 9. Metoprolol succinate 50 mg one tablet p.o. b.i.d. 10. Gemfibrozil 600 mg one tablet p.o. daily. 11. Gabapentin 600 mg three tabs p.o. b.i.d. 12. Lasix 40 mg one tablet p.o. b.i.d. 13. Fenofibrate one capsule p.o. daily. 14. Allopurinol 100 mg one tablet p.o. daily. 15. Tylenol 650 mg one tablet p.o. q.4 hours p.r.n. pain. HOSPITAL COURSE: Mr. Cruz is a pleasant 48-year-old gentleman, who presented to [facility] on 07/08/2019, please see full admission H and P in addition to consultation from vmware consultant for details. The patient was admitted to the intensive care unit in critical condition. The patient with shortness of breath, diagnosed with acute congestive heart failure and was placed on appropriate diuretic therapy. The patient with past medical history of atrial fibrillation, who is on chronic anticoagulation with warfarin. The patient with morbid obesity, BMI of greater than 65 on admission. The patient has been having worsening shortness of breath prior to admission. The patient also with worsening left leg cellulitis and extensive skin wound. The patient has chronic venous stasis dermatitis and chronic standing fluid has predisposed him to getting cellulitis and this has become widespread. Initially, there was concerns that the patient may have necrotizing fasciitis and a surgery consultation was requested, please see full consultation and progress notes for details. A CT scan of the lower extremity did not demonstrate any signs of obvious fluid collection and there was no obvious necrotizing fasciitis. The patient does have marked cellulitis, though again there is no drainable fluid collections or acute surgical indications for this patient throughout his hospitalization. The patient was seen and evaluated by Infectious Disease specialist, who adjusted antibiotics appropriately. The patient's cultures were nondiagnostic and the patient was transitioned from broad-spectrum empiric coverage to the skin specific oral antibiotics appropriately by Infectious Disease specialist on 07/24/2019. Efforts were made by myself and the caseworker to set up the patient with outpatient wound care-unfortunately, the patient refused this. Again, the patient refused to have outpatient wound care set up and states that he would not go to these appointments because he lives too far away and he refused to come that far just to have his wounds dressed. I adamantly explained to the patient the importance of having his wounds taken care of properly by a Wound Care nurse, Wound Care physician, and the Infectious Disease doctor. The patient stating that he would not allow us to set up outpatient wound care. The patient does state that he will take oral antibiotics and he will be compliant with followup with his specialist. I recommended the patient that he must see the social media specialist and Infectious Disease physician in the next 5 to 7 days and no later than 10 days. I did write the patient for all of his chronic medications in order to ensure compliance. I wrote the patient for a 10-day course of Keflex, to be followed by his first month of penicillin V for chronic bacterial suppressive therapy. I explicitly informed the patient that after one month, this prescription will have to come from his Infectious Disease specialist, though he states he will see him in the next 10 days. I explicitly informed the patient that if he goes back to his previous habits that brought him to the hospital, he will have worsening of shortness of breath, worsening of lower extremity edema, and he will most likely be readmitted to the hospital. I explicitly informed the patient that if he goes back to drinking gallons and gallons of water as he told me multiple times that he does every day that his lower extremity edema will return. I explicitly informed the patient that if his lower extremity edema returns, his lower extremity wounds will stop healing and he will get worse. The patient understands these risks and is able to verbalize them back to me. The patient, however, would not tell me that he will restrict his water intake and he states that he does not want to get dehydrated in the [place] heat. I recommended to the patient that he comply with fluid restrictions and take oral medications as directed. The patient was recommended safe for discharge by all specialists on 07/25/2019 only if he will comply with close followup in the outpatient setting. The patient is recommended to follow up with primary care physician in the next 5 to 7 days. The patient recommended to follow up with Infectious Disease specialist in no later than 10 days. The patient recommended to follow up with Wound Care physician in the next 5 to 7 days. The patient recommended to follow up with chocolate refining roller in the next 1 to 2 weeks. The patient is recommended to follow up with [facility] in the next 1 to 2 days. The patient recommended to [facility] if signs or symptoms return, worsen, or any other new symptoms occur. Greater than 45 minutes spent coordinating care and discharge process for this patient. Job ID: [id number]
--- NOTE | 2019-07-27 02:12 | PQF ---
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 Clinical indicators are provided on the bottom of this form for your review Can you please further specify the type and acuity of CHF base on the clinical indicators below? Please check appropriate box(s): HEART FAILURE: A. TYPE: [ ] Systolic / HFrEF [ XX ] Diastolic / HFpEF [ ] Combined Systolic / Diastolic B. ACUITY [ ] Acute [ XX ] Acute on Chronic [ ] Chronic [ ] Other diagnosis please specify [ ] Unable to determine In addition, please specify: Present on Admission (POA): [ XX ] Yes [ ] No [ ] Unable to determine For continuity of documentation, please document condition throughout progress notes and discharge summary. Thank You. CLINICAL INDICATORS - SIGNS / SYMPTOMS / LABS H and P 07/08 pg.2- Presenting with worsening leg pain, swelling and cellulitis Consult Dr. Mccauley 07/08 [id number] exacerbation of congestive failure DS 07/25 pg.1- Reason for hospitalization lower extremity cellulitis and shortness of breath DS 07/25 pg.1- The patient found to be in acute congestive hearth failure RISKS: Diabetes- H and P pg.1 Atrial Fibrillation- H and P pg.1 Morbid Obesity-H and P pg.2- Cardiomyopathy- Hospitalist PN Dr. Roper pg.6 TREATMENTS: Chest X ray 07/08 Furosemide Lasix 40mg PO- MAR 07/18 (This form is maintained as a part of the permanent medical record) 2014 [employer]. All Rights Reserved [email or web address] [phone] [facility]
--- NOTE | 2019-07-27 02:17 | PQF ---
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 Clinical indicators are provided on the bottom of this form for your review Can you please further specify if Septic Shock is ruled in or ruled out? Septic Shock [ XX ] Ruled in diagnosis [ ] Continue to treat [ XX ] Resolved [ ] Ruled out diagnosis [ ] Cannot rule out diagnosis [ ] Other diagnosis [ ] Unable to determine In addition, please specify: Present on Admission (POA): [ XX ] Yes [ ] No [ ] Unable to determine For continuity of documentation, please document condition throughout progress notes and discharge summary. Thank You. CLINICAL INDICATORS - SIGNS / SYMPTOMS / LABS ED provider p1 07/08 ROS: Historian reports chills, reports fever Vital signs : BP91/60, Pulse 113 - ED provider p2 07/08 ED provider p2 07/08 Pulse tachycardic 116, BP hypotensive 79/50, repositioned and retool 90/50 ED provider p4 epsis and septic shock on arrival d/t severe extensive left leg cellulitis ED provider p4 07/08 Central line was placed and Levophed hung as well. RISK FACTORS Sepsis - H&P p2 Cellulitis of left lower extremity - - H&P p2 TREATMENTS Vancomycin HCI1gm IV -DEC 29 Septic workup - H&P p2 IV Fluids- DEC 29 (This form is maintained as a part of the permanent medical record) 2014 [employer]. All Rights Reserved [email or web address] [not [email or web address]] [email or web address]
== END 2019-07-25 11:41 | disposition home or self-care (01) | DRG 871 ==
LOC: ERS 02:21 → IMCU/EMU 06:08 → T4-B 07-11 11:08
PROVIDERS: ADMIT Internal Medicine; ATTEND Internal Medicine
PROC: 02HV33Z Insertion of Infusion Device into Superior Vena Cava, Percutaneous Approach (ICD-10-PCS; principal; 2019-07-08)
DX: A41.9 Sepsis, unspecified organism (principal); R65.21 Severe sepsis with septic shock; I50.33 Acute on chronic diastolic (congestive) heart failure; L03.116 Cellulitis of left lower limb; Z68.44 Body mass index [BMI] 60.0-69.9, adult; I48.20 Chronic atrial fibrillation, unspecified; I42.9 Cardiomyopathy, unspecified; E66.01 Morbid (severe) obesity due to excess calories; E11.51 Type 2 diabetes mellitus with diabetic peripheral angiopathy without gangrene; M54.9 Dorsalgia, unspecified; F12.10 Cannabis abuse, uncomplicated; G47.33 Obstructive sleep apnea (adult) (pediatric); I87.2 Venous insufficiency (chronic) (peripheral); B95.4 Other streptococcus as the cause of diseases classified elsewhere; E11.649 Type 2 diabetes mellitus with hypoglycemia without coma; G89.4 Chronic pain syndrome; Z79.01 Long term (current) use of anticoagulants; Z79.4 Long term (current) use of insulin; Z87.891 Personal history of nicotine dependence; Z79.899 Other long term (current) drug therapy
CPT/HCPCS: 36415; 36416; 36556; 71045; 80048; 80053; 80202; 83605; 84145; 85025; 85610; 85652; 85730; 87070; 87205; 93005; 96361; 96365; 96375; J0692; J0696; J1642; J2270; J2997; J3010; J3370; J3490; J7050; J7070; Q9966; S0028